=== PATIENT | male | born 1955 | race Caucasian/White ===

== ENCOUNTER → 2016-06-04 | Outpatient (CLI) | payer OTHER ==
[2016-06-04 19:36] LABS: ALT 31 U/L (21-72); AST 23 U/L (17-59); Alkaline Phosphatase 69 U/L (38-126); Anion Gap 12 mmol/L; Blood Urea Nitrogen 9 mg/dL (9-20); Calcium 9.7 mg/dL (8.4-10.2); Carbon Dioxide 28 mmol/L (22-30); Chloride 101 mmol/L (98-107); Cholesterol 138 mg/dL (<200); Glucose 102 mg/dL (74-99); HDL Cholesterol 29 mg/dL (40-60); Non-African American GFR(MDRD) >60 (>60 ml/min/1.73 sqM); Potassium 4.6 mmol/L (3.5-5.1); Sodium 141 mmol/L (137-145); Total Bilirubin 0.8 mg/dL (0.2-1.3); Total Protein 6.9 g/dL (6.3-8.2); Triglycerides 424 mg/dL (<150)
== END | disposition home or self-care (01) ==
LOC: MMGSC 10:27
PROVIDERS: ATTEND Family Medicine
DX: Z12.5 Encounter for screening for malignant neoplasm of prostate (principal); E78.5 Hyperlipidemia, unspecified; I10 Essential (primary) hypertension
CPT/HCPCS: 80061; 80053; 36415; G0103

== ENCOUNTER → 2017-07-07 | Outpatient (CLI) | payer OTHER ==
[2017-07-07 20:21] LABS: ALT 26 U/L (21-72); AST 25 U/L (17-59); Albumin 4.4 g/dL (3.5-5.0); Alkaline Phosphatase 69 U/L (38-126); Anion Gap 13 mmol/L; Blood Urea Nitrogen 15 mg/dL (9-20); Calcium 9.7 mg/dL (8.4-10.2); Carbon Dioxide 29 mmol/L (22-30); Chloride 102 mmol/L (98-107); Cholesterol 141 mg/dL (<200); Glucose 97 mg/dL (74-99); HDL Cholesterol 31 mg/dL (40-60); LDL Cholesterol,Calculated 36 mg/dL (0-99); Potassium 4.2 mmol/L (3.5-5.1); Sodium 144 mmol/L (137-145); Total Bilirubin 0.7 mg/dL (0.2-1.3); Triglycerides 370 mg/dL (<150)
[2017-07-07 20:44] LABS: Basophils % (A) 0 %; Eosinophils # (A) 0.4 k/uL (0-0.7); Eosinophils % (A) 3 %; HCT 47.8 % (39.0-53.0); HGB 15.8 gm/dL (13.0-17.5); Lymphocytes # (A) 3.1 k/uL (1.0-4.8); Lymphocytes % (A) 29 %; MCH 30.8 pg (25.0-35.0); MCHC 33.1 g/dL (31.0-37.0); MCV 93.1 fL (80.0-100.0); Mean Platelet Volume 7.6; Monocytes # (A) 0.7 k/uL (0-1.0); Monocytes % (A) 6 %; Neutrophils # (A) 6.6 k/uL (1.3-7.7); Neutrophils % (A) 60 %; Platelet Count 208 k/uL (150-450); RBC 5.13 m/uL (4.30-5.90); RDW 12.7 % (11.5-15.5)
[2017-07-07 20:45] LABS: PSA Annual Screen 1.48 ng/mL (0.00-4.00)
== END | disposition home or self-care (01) ==
LOC: MMGSC 09:25
PROVIDERS: ATTEND Family Medicine
DX: I10 Essential (primary) hypertension (principal); E78.5 Hyperlipidemia, unspecified; Z12.5 Encounter for screening for malignant neoplasm of prostate
CPT/HCPCS: 80061; 80053; 85025; 36415; G0103

== ENCOUNTER → 2023-09-17 | Outpatient (CLI) | payer MEDICARE, OTHER ==
--- NOTE | 2023-09-17 21:39 | US ---
EXAMINATION TYPE: US liver DATE OF EXAM: 09/17/2023 COMPARISON: NONE CLINICAL INDICATION: Male, 67 years old with history of R748 ABNORMAL LEVELS OF OTHER SERUM ENZYMES; Abnormal LFT's TECHNIQUE: Multiple sonographic images of the right upper quadrant are obtained. FINDINGS: EXAM MEASUREMENTS: Liver Length: 18.0 cm Gallbladder Wall: 0.4 cm CBD: 0.3 cm Right Kidney: 10.1 x 3.7 x 4.7 cm MINERAL ECONOMIST NOTES: Pancreas: Body wnl, head and tail obscured by overlying bowel gas Liver: Enlarged, heterogeneous with probable innumerable solid lesions scattered throughout liver jin ggesting malignancy Gallbladder: Thickened wall, lumen clear Evidence for sonographic Mobley's sign: Yes CBD: wnl Right Kidney: wnl Scant amount of ascites present Circumferential wall thickening of the gallbladder measuring 4 mm. No cholelithiasis is identified. N o significant distention. Reported positive sonographic Mobley sign. Common bile duct is within gilberto l limits. Right kidney is unremarkable without evidence of hydronephrosis or nephrolithiasis. No jl l solid mass identified. Enlarged heterogenous liver with suggested innumerable hyperechoic small sca ttered lesions. Surface nodularity identified. The visualized portions of the pancreas unremarkable. Small amount of perihepatic ascites identified. IMPRESSION: 1. Findings suspicious for hepatic cirrhosis with multiple suggested scattered lesions which may rep resent hepatocellular carcinoma and/or metastasis. Further evaluation with CT or MR abdomen liver mas s protocol is recommended. 2. Gallbladder wall thickening without cholelithiasis however reported positive sonographic Mobley s ign. This may be reactive to #1 versus less likely acute cholecystitis. Consider further evaluation n [facility] HIDA scan as clinically indicated. 3. Trace perihepatic ascites.
== END | disposition home or self-care (01) ==
LOC: RADUSWWP 07:29
PROVIDERS: ATTEND Family Medicine
DX: K82.8 Other specified diseases of gallbladder (principal); R74.8 Abnormal levels of other serum enzymes; R18.8 Other ascites
CPT/HCPCS: 76705

== ENCOUNTER 2023-10-06 16:41 | Inpatient (IN) | payer MEDICARE, OTHER ==
--- NOTE | 2023-10-06 17:00 | ED ---
General Adult HPI - General Stated complaint: fluid retention Time Seen by Provider: 10/06/23 16:45 - History of Present Illness Initial comments: Dictation was produced using [employer] dictation software. please excuse any grammatical, word or spelling errors. Chief Complaint: 67-year-old male presents with episode of dizziness and blurred vision History of Present Illness: Patient 67-year-old male recently he went to his primary care doctor for routine 6-month visit. States that he had some abnormal blood work and he was told to get a ultrasound that was performed 2 days ago. He was told that his ultrasound suspicious for liver cancer. Patient states today he started to feel some episodes of blurred vision and dizziness. States that he also has some acute on chronic abdominal pain. Patient also reports having difficulty urinating and having a bowel movement. Last bowel movement was liquidy and it was today. States that he has not urinated yet today. EMS reports that he has stable vitals. The ROS documented in this emergency department record has been reviewed and confirmed by me. Those systems with pertinent positive or negative responses have been documented in the HPI. All other systems are other negative and/or noncontributory. - Related Data Home Medications Medication Instructions Recorded Confirmed Aspirin EC [Ecotrin] 325 mg PO DAILY 10/06/23 10/06/23 Fish Oil(Unknown Dose) 1 cap PO DAILY 10/06/23 10/06/23 Meloxicam [Mobic] 15 mg PO DAILY PRN 10/06/23 10/06/23 Metoprolol Succinate (ER) [Toprol 100 mg PO DAILY 10/06/23 10/06/23 Xl] Rosuvastatin [Crestor] 10 mg PO HS 10/06/23 10/06/23 Vitamin C(Unknown Dose) 1 tab PO DAILY 10/06/23 10/06/23 Vitamin D3(Unknown Dose) 1 tab PO DAILY 10/06/23 10/06/23 Zolpidem [Ambien] 10 mg PO HS PRN 10/06/23 10/06/23 Allergies Allergy/AdvReac Type Severity Reaction Status Date / Time oxycodone AdvReac Confusion Verified 10/06/23 20:14 Review of Systems ROS Statement: Those systems with pertinent positive or pertinent negative responses have been documented in the HPI. ROS Other: All systems not noted in ROS Statement are negative. General Exam - General Exam Comments Initial Comments: PHYSICAL EXAM: General Impression: Alert and oriented x3, not in acute distress HEENT: Normocephalic atraumatic, extra-ocular movements intact, pupils equal and reactive to light bilaterally, mucous membranes moist. Cardiovascular: Heart regular rate and rhythm Chest: Able to complete full sentences, no retractions, no tachypnea Abdomen: abdomen soft, non-tender, non-distended, no organomegaly Musculoskeletal: Pulses present and equal in all extremities, no peripheral edema Motor: no focal deficits noted Neurological: CN II-XII grossly intact, no focal motor or sensory deficits noted Skin: Intact with no visualized rashes Psych: Normal affect and mood Course Vital Signs 10/06/23 10/06/23 10/06/23 16:53 17:42 17:43 Temperature 98.7 F Pulse Rate 98 Pulse Rate [ 87 94 Call Center Recruiter ] Respiratory 18 18 18 Rate Blood Pressure 132/91 Blood Pressure 136/96 [Right Arm Sitting] Blood Pressure 114/84 [Right Arm Standing] Blood Pressure 140/92 [Right Arm Supine] O2 Sat by Pulse 99 98 98 Oximetry 10/06/23 19:43 Temperature Pulse Rate 85 Pulse Rate [ Call Center Recruiter ] Respiratory 18 Rate Blood Pressure 148/85 Blood Pressure [Right Arm Sitting] Blood Pressure [Right Arm Standing] Blood Pressure [Right Arm Supine] O2 Sat by Pulse 100 Oximetry EKG Findings - EKG Comments: EKG Findings:: My EKG interpretation: Ventricular rate 83, sinus rhythm,. 187, cures 81, QTc 4 3. No NE prolongation, no QTC prolongation, no ST or T-wave changes noted. Overall, this EKG is unremarkable Medical Decision Making - Medical Decision Making Was pt. sent in by a medical professional or institution (, PA, PRESIDENT OF [place], urgent care, hospital, or [place] health care facility...) When possible be specific @ -No Did you speak to anyone other than the patient for history (EMS, parent, family, police, friend...)? What history was obtained from this source @ -No Did you review nursing and triage notes (agree or disagree)? Why? @ -I reviewed and agree with nursing and triage notes Were old charts reviewed (outside hosp., previous admission, EMS record, old EKG, old radiological studies, urgent care reports/EKG's, [place] health care facility records)? Report findings @ -No old charts were reviewed Differential Diagnosis (chest pain, altered mental status, abdominal pain women, abdominal pain men, vaginal bleeding, musculoskeletal, weakness, fever, dyspnea, syncope, headache, dizziness, GI bleed, back pain, seizure, CVA, palpatations, mental health)? @ -Differential Weakness: Hypoglycemia, shock, sepsis, hyponatremia, anemia, infection, MO, ETOH, adverse medicine reaction, overdose, stroke, this is not meant to be an all-inclusive list. EKG interpreted by me (3pts min.). @ -See above X-rays interpreted by me (1pt min.). @ -None done CT interpreted by me (1pt min.). @ -CT scan the brain shows no acute processes. CT abdomen pelvis shows multiple hypodense masses throughout the liver and also ascites. U/S interpreted by me (1pt. min.). @ -None done What testing was considered but not performed or refused? (CT, X-rays, U/S, labs)? Why? @ -None What meds were considered but not given or refused? Why? @ -None Was smoking cessation discussed for >3mins.? @ -No Were there social determinants of health that impacted care today? How? (Homelessness, low income, unemployed, alcoholism, drug addiction, transportation, low edu. Level, literacy, decrease access to med. care, group home, rehab)? @ -No Was there de-escalation of care discussed even if they declined (Discuss DNR or withdrawal of care, Hospice)? DNR status @ -No What co-morbidities impacted this encounter? (DM, HTN, Smoking, COPD, CAD, Cancer, CVA, ARF, Chemo, Hep., AIDS, mental health diagnosis, sleep apnea, morbid obesity)? @ -None Was patient admitted / discharged? Hospital course, mention meds given and route, prescriptions, significant lab abnormalities, going to OR and other pertinent info. @ -67-year-old male presents to the emergency department for chief complaint of dizziness, lester pain and urinary retention. Patient well-appearing at the bedside. He does have diffuse palpatory abdominal pain. Vital signs are stable. Laboratory evaluation obtained. CBC within acceptable limits. Sodium 120. Evaded liver enzymes. Urinalysis negative. Howard catheter was placed. Case discussed with [facility] for inpatient management of hyponatremia. They are made aware that patient has likely what appears to be new onset liver cancer. [facility] is agreeable for this admission. Did you discuss the management of the patient with other professionals (professionals i.e. , PA, [place]IDENT [place], lab, RT, psych nurse, socially responsible investment adviser, microsoft exchange architect, teacher, horticultural technical officer, comp field case manager)? Give summary @ -See above Was critical care preformed (if so, how long)? @ -No Undiagnosed new problem with uncertain prognosis? @ -No Drug Therapy requiring intensive monitoring for toxicity (Heparin, Nitro, Insulin, Cardizem)? @ -No Were any procedures done? @ -No Diagnosis/symptom? Acute, or Chronic, or Acute on Chronic? Uncomplicated (without systemic symptoms) or Complicated (systemic symptoms)? @ -Hyponatremia Side effects of treatment? @ -No Exacerbation, Progression, or Severe Exacerbation? @ -No Poses a threat to life or bodily function? How? (Chest pain, USA, MO, pneumonia, PE, COPD, DKA, ARF, appy, cholecystitis, CVA, Diverticulitis, Homicidal, Suicidal, threat to staff... and all critical care pts) @ -yes - Lab Data Result diagrams: 10/06/23 16:54 10/06/23 16:54 Lab Results 10/06/23 10/06/23 10/06/23 Range/Units 16:54 16:54 17:06 WBC 13.4 H (3.8-10.6) k/uL RBC 4.49 (4.30-5.90) m/uL Hgb 12.3 L (13.0-17.5) gm/dL Hct 38.2 L (39.0-53.0) % MCV 85.0 (80.0-100.0) fL MCH 27.3 (25.0-35.0) pg MCHC 32.1 (31.0-37.0) g/dL RDW 13.8 (11.5-15.5) % Plt Count 200 (150-450) k/uL MPV 7.2 Neutrophils % 89 % Lymphocytes % 4 % Monocytes % 5 % Eosinophils % 0 % Basophils % 0 % Neutrophils # 11.9 H (1.3-7.7) k/uL Lymphocytes # 0.6 L (1.0-4.8) k/uL Monocytes # 0.7 (0-1.0) k/uL Eosinophils # 0.0 (0-0.7) k/uL Basophils # 0.0 (0-0.2) k/uL Sodium 120 L (137-145) mmol/L Potassium 5.1 (3.5-5.1) mmol/L Chloride 88 L (98-107) mmol/L Carbon Dioxide 20 L (22-30) mmol/L Anion Gap 12 mmol/L BUN 20 (9-20) mg/dL Creatinine 0.80 (0.66-1.25) mg/dL Est GFR (CKD-EPI)AfAm >90 (>60 ml/min/1.73 sqM) Est GFR (CKD-EPI)NonAf >90 (>60 ml/min/1.73 sqM) Glucose 106 H (74-99) mg/dL Calcium 8.4 (8.4-10.2) mg/dL Magnesium 1.9 (1.6-2.3) mg/dL Total Bilirubin 3.4 H (0.2-1.3) mg/dL AST 101 H (17-59) U/L ALT 59 H (4-49) U/L Alkaline Phosphatase 1187 H (38-126) U/L Total Protein 5.3 L (6.3-8.2) g/dL Albumin 3.1 L (3.5-5.0) g/dL Urine Color Yellow Urine Appearance Clear (Clear) Urine pH 5.5 (5.0-8.0) Ur Specific Randolph 1.018 (1.001-1.035) Urine Protein Trace H (Negative) Urine Glucose (UA) Negative (Negative) Urine Ketones 1+ H (Negative) Urine Blood Negative (Negative) Urine Nitrite Negative (Negative) Urine Bilirubin 1+ H (Negative) Urine Urobilinogen 2.0 (<2.0) mg/dL Ur Leukocyte Esterase Negative (Negative) Disposition Clinical Impression: Hyponatremia Disposition: ADMITTED IP TO THIS HOSP Condition: Fair Referrals: Arlet Pacheco MD [Primary Care Provider] - 1-2 days Decision Time: 20:00
[2023-10-06 17:29] LABS: Basophils % (A) 0 %; Eosinophils % (A) 0 %; HCT 38.2 % (39.0-53.0); HGB 12.3 gm/dL (13.0-17.5); Lymphocytes # (A) 0.6 k/uL (1.0-4.8); Lymphocytes % (A) 4 %; MCH 27.3 pg (25.0-35.0); MCHC 32.1 g/dL (31.0-37.0); Mean Platelet Volume 7.2; Monocytes # (A) 0.7 k/uL (0-1.0); Monocytes % (A) 5 %; Neutrophils # (A) 11.9 k/uL (1.3-7.7); Neutrophils % (A) 89 %; Platelet Count 200 k/uL (150-450); RBC 4.49 m/uL (4.30-5.90); RDW 13.8 % (11.5-15.5); WBC 13.4 k/uL (3.8-10.6)
[2023-10-06 17:54] LABS: Appearance,Urine Clear (Clear); Bilirubin,Urine 1+ (Negative); Blood,Urine Negative (Negative); Color,Urine Yellow; Glucose,Urine (UA) Negative (Negative); Ketones,Urine 1+ (Negative); Leukocyte Esterase,Urine Negative (Negative); Nitrite,Urine Negative (Negative); PH, Urine 5.5 (5.0-8.0); Protein,Urine Trace (Negative); Specific Gravity,Urine 1.018 (1.001-1.035)
[2023-10-06 17:56] LABS: African American GFR (CKD) >90 (>60 ml/min/1.73 sqM); Albumin 3.1 g/dL (3.5-5.0); Blood Urea Nitrogen 20 mg/dL (9-20); Calcium 8.4 mg/dL (8.4-10.2); Glucose 106 mg/dL (74-99); Magnesium 1.9 mg/dL (1.6-2.3); Non-African American GFR(CKD) >90 (>60 ml/min/1.73 sqM); Potassium 5.1 mmol/L (3.5-5.1); Sodium 120 mmol/L (137-145); Total Bilirubin 3.4 mg/dL (0.2-1.3)
[2023-10-06 18:06] LABS: ALT 59 U/L (4-49); AST 101 U/L (17-59); Anion Gap 12 mmol/L; Carbon Dioxide 20 mmol/L (22-30); Chloride 88 mmol/L (98-107); Total Protein 5.3 g/dL (6.3-8.2)
[2023-10-06 18:18] LABS: Alkaline Phosphatase 1187 U/L (38-126)
--- NOTE | 2023-10-06 19:15 | CT ---
EXAMINATION TYPE: CT brain wo con DATE OF EXAM: 10/06/2023 COMPARISON: None INDICATION: dizziness DLP: 1107.4 mGycm, Automated exposure control for dose reduction was used. CONTRAST: None CT of the brain is performed utilizing 3 mm thick sections through the posterior fossa and 3 mm thick sections through the remaining calvarium. Study is performed within 24 hours of arrival to the hosp ital. No abnormal hyperdensity is present to suggest an acute intracranial hemorrhage. No mass lesion is evident. No acute infarcts are evident. Ventricles and sulci are appropriate for the patient age. There is a right maxillary sinus air-fluid level. Correlate for acute sinusitis. Paranasal sinuses an d mastoid air cells are otherwise clear. IMPRESSION: 1. No acute intracranial process. Follow-up MRI can be performed as clinically indicated. 2. Clinical consideration for acute right maxillary sinusitis is recommended.
--- NOTE | 2023-10-06 19:27 | CT ---
EXAMINATION TYPE: CT abdomen pelvis w con DATE OF EXAM: 10/06/2023 COMPARISON: Ultrasound 09/17/2023 INDICATION: abdominal pain, hx of liver ca DLP: 573.9 mGycm, Automated exposure control for dose reduction was used. CONTRAST: 100ml mL of Isovue 300. Study performed without Oral Contrast TECHNIQUE: Axial images were obtained from above the diaphragm to the pubic rami in the axial plane a t 5 mm thick sections. Reconstructed images are reviewed on the computer in the coronal plane. FINDINGS: Limited CT sections are obtained the lung bases. There is a 0.3 cm wide oval density at the base of the posterior lateral right lung. There is a 0.4 cm nodular density posterior left lung. There is a 0.5 cm nodule above the right diaphragm.. CT ABDOMEN: Ascites is present adjacent to the liver and spleen. Liver: There is extensive hypodensities with ill-defined margins throughout the liver suspicious for hepatic metastasis. Spleen: Normal Pancreas: Normal Adrenal glands: The adrenal glands are normal. Gallbladder: Normal Kidneys: No masses are evident. No hydronephrosis is present. No cysts are present. No renal stone s are identified. Aorta: Vascular calcification is within the aorta. Inferior vena cava: Normal. CT PELVIS: Ascites is through the pelvis. There may be some fluid within the right inguinal hernia. Loops of bowel within the abdomen and pelvis are normal. Scattered diverticuli within the sigmoid co ayla. This study is without oral contrast limiting bowel evaluation. Appendix: Not visualized. No dilated tubular structure or inflammatory change is evident. Urinary bladder: Decompressed with some limitation. Genitourinary structures: Prostate is somewhat prominent. Osseous structures: No suspicious lytic or sclerotic lesions. IMPRESSION: 1. Multiple hypodense masses scattered throughout the liver suspicious for metastatic disease. 2. Ascites.
[2023-10-06] MEDS: SODIUM CHLORIDE 0.9% 1,000 ML IV STA (19:45)
[2023-10-06] MEDS ORDERED: NALOXONE 0.4 MG/ML 1 ML VIAL IV PRN (20:46)
[2023-10-06] MEDS: SODIUM CHLORIDE 0.9% 1,000 ML IV SCH (20:57)
--- NOTE | 2023-10-06 23:29 | P.HPIM ---
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 He reports that he has been following up with his primary care doctor for routine wellness exams and visits when she found that he has elevated liver markers. For which she performed ultrasound as an outpatient and was found to have liver lesions for which she was urged to come to the hospital for evaluation Patient reports diffuse abdominal pain of 3 days duration he describes it as a vague achy pain all across his belly worse with eating and moving denies any associated nausea vomiting fevers chills chest pain shortness of breath. Patient reports weight loss of 7 pounds. He denies any IV drug abuse alcohol abuse or smoking He denies any falls or head injury denies any GI bleeding denies any history of blood clots He had a colonoscopy done about 8 years ago at that time he had 2 polyps he denies any history of cancer review of systems Pertinent positives as noted in HPI. All other systems were reviewed and are negative on exam Constitutional: No acute distress, conversant, pleasant Eyes: HiNT of sclerae jaundice, moist conjunctiva, Pupils equal round reactive to light ENMT: NC/AT Oropharynx clear, no erythema, or exudates Neck: Supple, no masses, or JVD No carotid bruits No thyromegaly Lungs: Clear to auscultation Clear to percussion Normal respiratory effort, no accessory muscle use Cardiovascular: Heart regular in rate and rhythm, No murmurs, gallops, or rubs No peripheral edema Abdominal: Soft Nontender, no guarding, rebound or rigidity Abdomen moving with respiration Normoactive bowel sounds Extremities: No digital cyanosis Pedal pulses intact and symmetrical Radial pulses intact and symmetrical No calf tenderness Psychiatric: Alert and oriented to person, place and time Appropriate affect fair judgement Neuro Muscles Strength 5/5 in all 4 extremities Sensation to light touch grossly present throughout Cranial nerves II-XII grossly intact Past Medical History Past Medical History: Cancer Additional Past Medical History / Comment(s): liver cancer 2023 History of Any Multi-Drug Resistant Organisms: None Reported Past Psychological History: No Psychological Hx Reported Smoking Status: Former smoker Past Alcohol Use History: None Reported Past Drug Use History: None Reported Medications and Allergies Home Medications Medication Instructions Recorded Confirmed Type Aspirin EC [Ecotrin] 325 mg PO DAILY 10/06/23 10/06/23 History Fish Oil(Unknown Dose) 1 cap PO DAILY 10/06/23 10/06/23 History Meloxicam [Mobic] 15 mg PO DAILY PRN 10/06/23 10/06/23 History Metoprolol Succinate (ER) [Toprol 100 mg PO DAILY 10/06/23 10/06/23 History Xl] Rosuvastatin [Crestor] 10 mg PO HS 10/06/23 10/06/23 History Vitamin C(Unknown Dose) 1 tab PO DAILY 10/06/23 10/06/23 History Vitamin D3(Unknown Dose) 1 tab PO DAILY 10/06/23 10/06/23 History Zolpidem [Ambien] 10 mg PO HS PRN 10/06/23 10/06/23 History Allergies Allergy/AdvReac Type Severity Reaction Status Date / Time oxycodone AdvReac Confusion Verified 10/06/23 20:14 Physical Exam Vitals: Vital Signs Temp Pulse Pulse Resp BP BP BP 10/06/23 19:43 85 18 148/85 10/06/23 17:43 94 18 136/96 114/84 10/06/23 17:42 87 18 10/06/23 16:53 98.7 F 98 18 132/91 BP Pulse Ox 10/06/23 19:43 100 10/06/23 17:43 98 10/06/23 17:42 140/92 98 10/06/23 16:53 99 Intake and Output 10/06/23 10/06/23 10/07/23 14:59 22:59 06:59 Other: Weight 58.967 kg Results CBC & Chem 7: 10/06/23 16:54 10/06/23 16:54 Labs: Abnormal Lab Results - Last 24 Hours (Table) 10/06/23 10/06/23 10/06/23 Range/Units 16:54 16:54 17:06 WBC 13.4 H (3.8-10.6) k/uL Hgb 12.3 L (13.0-17.5) gm/dL Hct 38.2 L (39.0-53.0) % Neutrophils # 11.9 H (1.3-7.7) k/uL Lymphocytes # 0.6 L (1.0-4.8) k/uL Sodium 120 L (137-145) mmol/L Chloride 88 L (98-107) mmol/L Carbon Dioxide 20 L (22-30) mmol/L Glucose 106 H (74-99) mg/dL Total Bilirubin 3.4 H (0.2-1.3) mg/dL AST 101 H (17-59) U/L ALT 59 H (4-49) U/L Alkaline Phosphatase 1187 H (38-126) U/L Total Protein 5.3 L (6.3-8.2) g/dL Albumin 3.1 L (3.5-5.0) g/dL Urine Protein Trace H (Negative) Urine Ketones 1+ H (Negative) Urine Bilirubin 1+ H (Negative) Assessment and Plan Assessment: 67-year-old male with premature CAD coming in for evaluation of abdominal pain and elevated liver enzymes he had an ultrasound done as an outpatient showed diffuse liver lesions I discussed case with ED doctor and accepted the admission for postural dizziness hyponatremia and liver lesions with anticipated length of stay more than 2 midnights Postural dizziness Hyponatremia, suspected to be secondary to liver disease Sodium level 120 Potassium 5.1 unremarkable BUN 20 creatinine 0.8 Status post 1 L normal saline in the ED Follow-up sodium level Nephrology consult Fall precautions Elevated liver enzymes CT scan of the abdomen pelvis showed multiple liver lesions unknown primary source suspicious of metastasis Bilirubin 3.4 AST 101 ALT 59 both elevated Alkaline phosphatase 1187 elevated GI consultation Oncology consultation History of CAD Continue with aspirin Hold statin secondary to elevated liver enzymes Continue with metoprolol Leukocytosis white count of 13.4 Afebrile No identifiable source of primary infection Mild anemia Hemoglobin 12.3 Patient denies any GI bleeding Continue to monitor DVT prophylaxis Lovenox 40 mg subcu daily Full code GI prophylaxis Protonix 40 mg p.o. daily
[2023-10-07] MEDS: MORPHINE SULFATE 4 MG/ML SYRINGE IVP PRN (04:14)
[2023-10-07] MEDS ORDERED: ENOXAPARIN 40 MG/0.4 ML SYRINGE SQ SCH (09:00)
[2023-10-07] MEDS ORDERED: ASPIRIN 81 MG PO SCH (09:00)
[2023-10-07] MEDS: METOPROLOL SUCCINATE (ER) 100 MG TAB.ER.24H PO SCH (09:05)
[2023-10-07] MEDS ORDERED: RX INFO: IV CONTRAST WAS GIVEN 1 EACH MISC MISCELLANE PRN (09:25)
--- NOTE | 2023-10-07 11:05 | P.CONS ---
History of Present Illness - Reason for Consult Consult date: 10/07/23 Liver lesions Requesting physician: Jung Mancia - Chief Complaint Abdominal pain - History of Present Illness This is a pleasant 67-year-old male who presented to the emergency department with complaints of abdominal pain and follow-up on abnormal outpatient ultrasoun d and labs. He was also reporting dizziness with movement. Patient denies any significant past medical history, former smoker. Denies any alcoholism states he drink socially when he was younger has not had a drink since his 40s. Patient states he had seen his PCP in June and had abnormal labs for his 6- month checkup. States that he had elevated liver enzymes, he had followed up with his PCP with complaints of abdominal pain, they recommended a liver ultrasound which she had done September 16 which reported suspicious for hepatic cirrhosis with multiple scattered lesions on the liver. Patient states he was called from his PCP and encouraged to come to the emergency department for further evaluation. He states he has had abdominal pain and bloating since the end of July. No previous known history of liver disease or cirrhosis. No history of hepatitis. States no weight loss, appetite has been good. He had elevated LFTs on admission, he had a CT of the abdomen and pelvis again report ing multiple liver lesions. Gastroenterology was consulted for the above. Patient reports last colonoscopy about 9 years ago. He currently denies any abdominal pain at this time states that he has been given morphine. No nausea or vomiting. He is tolerating a regular diet. Patient was also noted to be hyponatremic on admission. Review of Systems REVIEW OF SYSTEMS: CARDIOPULMONARY: No chest pain or shortness of breath. Gastrointestinal: Abdominal pain. No nausea or vomiting. No hematemesis, coffee-ground emesis. No rectal bleeding, or melena. GENITOURINARY: No dysuria or hematuria. MUSCULOSKELETAL: Reports normal range of motion. SKIN: No rashes. No jaundice. ENDOCRINE: No chills, fevers. No excessive weight gain or loss. No polydipsia or polyuria. PSYCHIATRIC: Unremarkable. NEUROLOGY: No change in mental status. Denies headache. Patient was having positional dizziness. ENT: Vision unremarkable. CONSTITUTIONAL: No recent weight loss. No fever, chills, night sweats. Past Medical History Past Medical History: Cancer Additional Past Medical History / Comment(s): liver cancer 2023 History of Any Multi-Drug Resistant Organisms: None Reported Past Psychological History: No Psychological Hx Reported Smoking Status: Former smoker Past Alcohol Use History: None Reported Past Drug Use History: None Reported Medications and Allergies Home Medications Medication Instructions Recorded Confirmed Type Aspirin EC [Ecotrin] 325 mg PO DAILY 10/06/23 10/06/23 History Fish Oil(Unknown Dose) 1 cap PO DAILY 10/06/23 10/06/23 History Meloxicam [Mobic] 15 mg PO DAILY PRN 10/06/23 10/06/23 History Metoprolol Succinate (ER) [Toprol 100 mg PO DAILY 10/06/23 10/06/23 History Xl] Rosuvastatin [Crestor] 10 mg PO HS 10/06/23 10/06/23 History Vitamin C(Unknown Dose) 1 tab PO DAILY 10/06/23 10/06/23 History Vitamin D3(Unknown Dose) 1 tab PO DAILY 10/06/23 10/06/23 History Zolpidem [Ambien] 10 mg PO HS PRN 10/06/23 10/06/23 History Allergies Allergy/AdvReac Type Severity Reaction Status Date / Time acetaminophen [From Tylenol] Allergy Rash/Hives Verified 10/06/23 23:50 oxycodone AdvReac Confusion Verified 10/06/23 20:14 Physical Exam Vitals: Vital Signs Temp Pulse Pulse Resp BP BP BP 10/07/23 08:00 98.7 F 80 18 133/85 10/07/23 06:00 78 17 107/70 10/07/23 04:00 87 18 147/85 10/07/23 03:26 82 18 136/102 10/06/23 23:00 86 18 121/77 10/06/23 19:43 85 18 148/85 10/06/23 17:43 94 18 136/96 114/84 10/06/23 17:42 87 18 10/06/23 16:53 98.7 F 98 18 132/91 BP Pulse Ox 10/07/23 08:00 95 10/07/23 06:00 94 L 10/07/23 04:00 10/07/23 03:26 10/06/23 23:00 10/06/23 19:43 100 10/06/23 17:43 98 10/06/23 17:42 140/92 98 10/06/23 16:53 99 Intake and Output 10/06/23 10/07/23 10/07/23 22:59 06:59 14:59 Output Total 850 Balance -850 Output: Urine 850 Uretheral (Howard) 850 Other: Weight 58.967 kg General appearance: The patient is alert, oriented, appears in no acute distress. HET: Head is normocephalic and atraumatic. Conjunctiva pink. Sclera anicteric. Neck: Supple without lymphadenopathy. Trachea midline. Heart: Regular. Lungs: Equal expansion, normal respiratory effort. Abdomen: Soft, mildly distended, nontender with palpation. Skin: No rashes. No jaundice. Extremities: Normal skin color and turgor. No pedal edema. Neurological: No focal deficits. Alert and oriented x3. Results CBC & Chem 7: 10/06/23 16:54 10/06/23 16:54 Labs: Abnormal Lab Results - Last 24 Hours (Table) 10/06/23 10/06/23 10/06/23 Range/Units 16:54 16:54 17:06 WBC 13.4 H (3.8-10.6) k/uL Hgb 12.3 L (13.0-17.5) gm/dL Hct 38.2 L (39.0-53.0) % Neutrophils # 11.9 H (1.3-7.7) k/uL Lymphocytes # 0.6 L (1.0-4.8) k/uL Sodium 120 L (137-145) mmol/L Chloride 88 L (98-107) mmol/L Carbon Dioxide 20 L (22-30) mmol/L Glucose 106 H (74-99) mg/dL Total Bilirubin 3.4 H (0.2-1.3) mg/dL AST 101 H (17-59) U/L ALT 59 H (4-49) U/L Alkaline Phosphatase 1187 H (38-126) U/L Total Protein 5.3 L (6.3-8.2) g/dL Albumin 3.1 L (3.5-5.0) g/dL Urine Protein Trace H (Negative) Urine Ketones 1+ H (Negative) Urine Bilirubin 1+ H (Negative) Comments: CT abdomen pelvis with contrast reports multiple hypodense masses scattered throughout the liver suspicious for metastatic disease. Ascites. Brain CT reports no acute intracranial process. Follow-up MRI can be performed as clinically indicated. Clinical consideration for acute right maxillary sinusitis is recommended. Assessment and Plan (1) Liver lesion Narrative/Plan: 67-year-old male presenting with abdominal pain since end of July with history of elevated LFTs following with his primary care physician undergoing outpatient liver ultrasound with liver lesions noted. No previous history of alcoholism, no history of hepatitis and no known history of liver disease. CT abdomen pelvis again showing multiple liver lesions and ascites. Concern for underlying liver carcinoma. Will obtain consult to interventional radiology for paracentesis with fluid studies. Await further recommendations from oncology. Obtain AFP, hepatitis panel. Current Visit: Yes Status: Acute Code(s): K76.9 - LIVER DISEASE, UNSPECIFIED SNOMED Code(s): 497632980 (2) Abdominal pain Current Visit: Yes Status: Acute Code(s): R10.9 - UNSPECIFIED ABDOMINAL PAIN SNOMED Code(s): 18268047 (3) Elevated LFTs Current Visit: Yes Status: Acute Code(s): R79.89 - OTHER SPECIFIED ABNORMAL FINDINGS OF BLOOD CHEMISTRY SNOMED Code(s): 122195108 (4) Hyponatremia Narrative/Plan: Nephrology following Current Visit: Yes Status: Acute Code(s): E87.1 - HYPO-OSMOLALITY AND HYPONATREMIA SNOMED Code(s): 56751878 Plan: 1. Continue symptomatic and supportive care 2. Diet as tolerated 3. AFP, hepatitis panel ordered 4. Consult to interventional radiology for paracentesis with fluid studies and cytology 5. Pain medication as needed 6. Await further recommendations from oncology 7. Further recommendations forthcoming based on clinical course Thank you for this consultation, we will continue to follow. Dr. Tone Monroy I agree with the dictator's note, documented as a scribe by Nyasia Merino.
--- NOTE | 2023-10-07 11:44 | P.PN ---
Subjective Progress Note Date: 10/07/23 Patient has no new complaints. 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 coming in for evaluation of abdominal pain and elevated liver enzymes he had an ultrasound done as an outpatient showed diffuse liver lesions I discussed case with ED doctor and accepted the admission for postural dizziness hyponatremia and liver lesions with anticipated length of stay more than 2 midnights -Status post 1 L normal saline in the ED Sodium level 120 CT scan of the abdomen pelvis showed multiple liver lesions unknown primary source suspicious of metastasis Bilirubin 3.4 AST 101 ALT 59 both elevated Alkaline phosphatase 1187 elevated white count of 13.4 Afebrile Hemoglobin 12.3 Potassium 5.1 unremarkable BUN 20 creatinine 0.8 Assessment/plan: Postural dizziness Hyponatremia, euvolemic -Nephrology consult -Fall precautions -Basic metabolic panel: Every 6 hours, serum osmolality/sodium, urine osmolality is pending Liver lesions Elevated liver enzymes -GI consultation -Oncology consultation History of CAD -Continue with aspirin -Hold statin secondary to elevated liver enzymes -Continue with metoprolol Leukocytosis -No identifiable source of primary infection Mild anemia -Patient denies any GI bleeding -Continue to monitor -Oncology is following DVT prophylaxis Lovenox 40 mg subcu daily Full code GI prophylaxis Protonix 40 mg p.o. daily Objective - Vital Signs Vital signs: Vital Signs Temp 98.7 F 10/07/23 08:00 Pulse 80 10/07/23 08:00 Resp 18 10/07/23 08:00 BP 133/85 10/07/23 08:00 Pulse Ox 95 10/07/23 08:00 FiO2 Intake & Output 10/06/23 10/07/23 10/07/23 18:59 06:59 18:59 Output Total 850 Balance -850 Weight 58.967 kg Output: Urine 850 Uretheral (Howard) 850 - Labs CBC & Chem 7: 10/06/23 16:54 10/06/23 16:54 Labs: Abnormal Lab Results - Last 24 Hours (Table) 10/06/23 10/06/23 10/06/23 Range/Units 16:54 16:54 17:06 WBC 13.4 H (3.8-10.6) k/uL Hgb 12.3 L (13.0-17.5) gm/dL Hct 38.2 L (39.0-53.0) % Neutrophils # 11.9 H (1.3-7.7) k/uL Lymphocytes # 0.6 L (1.0-4.8) k/uL Sodium 120 L (137-145) mmol/L Chloride 88 L (98-107) mmol/L Carbon Dioxide 20 L (22-30) mmol/L Glucose 106 H (74-99) mg/dL Total Bilirubin 3.4 H (0.2-1.3) mg/dL AST 101 H (17-59) U/L ALT 59 H (4-49) U/L Alkaline Phosphatase 1187 H (38-126) U/L Total Protein 5.3 L (6.3-8.2) g/dL Albumin 3.1 L (3.5-5.0) g/dL Urine Protein Trace H (Negative) Urine Ketones 1+ H (Negative) Urine Bilirubin 1+ H (Negative)
[2023-10-07 11:57] LABS: African American GFR (CKD) >90 (>60 ml/min/1.73 sqM); Non-African American GFR(CKD) >90 (>60 ml/min/1.73 sqM); Sodium 123 mmol/L (137-145)
[2023-10-07 12:04] LABS: INR 1.3 (<1.2); Prothrombin Time 13.4 sec (10.0-12.5)
[2023-10-07 12:36] LABS: BUN/Creat Ratio 18.25 Ratio (12.00-20.00); Blood Urea Nitrogen 14.6 mg/dL (9.0-27.0); Calcium 7.9 mg/dL (8.7-10.3); Carbon Dioxide 23.3 mmol/L (21.6-31.8); Chloride 91 mmol/L (96-109); Glucose 83 mg/dL (70-110); Potassium 4.8 mmol/L (3.5-5.5); Sodium 125 mmol/L (135-145)
--- NOTE | 2023-10-07 12:49 | P.NPCON ---
History of Present Illness - Reason for Consult hyponatremia - History of Present Illness Patient is a 67-year-old male with history of coronary artery disease and recently diagnosed liver cancer who is admitted to the hospital with decreased oral intake, increased weakness along with abdominal pain which has been going on for 2-3 days prior to admission. Patient admits to decreased oral intake recently. He has had significant weight loss. No previous history of hyponatremia. sodium was 120 on admission. Blood pressure has not been low. patient received IV fluid bolus in the ER. Sodium has improved to 123 today. Review of Systems as per HPI Past Medical History Past Medical History: Cancer Additional Past Medical History / Comment(s): liver cancer 2023 History of Any Multi-Drug Resistant Organisms: None Reported Past Psychological History: No Psychological Hx Reported Smoking Status: Former smoker Past Alcohol Use History: None Reported Past Drug Use History: None Reported Medications and Allergies Home Medications Medication Instructions Recorded Confirmed Type Aspirin EC [Ecotrin] 325 mg PO DAILY 10/06/23 10/06/23 History Fish Oil(Unknown Dose) 1 cap PO DAILY 10/06/23 10/06/23 History Meloxicam [Mobic] 15 mg PO DAILY PRN 10/06/23 10/06/23 History Metoprolol Succinate (ER) [Toprol 100 mg PO DAILY 10/06/23 10/06/23 History Xl] Rosuvastatin [Crestor] 10 mg PO HS 10/06/23 10/06/23 History Vitamin C(Unknown Dose) 1 tab PO DAILY 10/06/23 10/06/23 History Vitamin D3(Unknown Dose) 1 tab PO DAILY 10/06/23 10/06/23 History Zolpidem [Ambien] 10 mg PO HS PRN 10/06/23 10/06/23 History Allergies Allergy/AdvReac Type Severity Reaction Status Date / Time acetaminophen [From Tylenol] Allergy Rash/Hives Verified 10/06/23 23:50 oxycodone AdvReac Confusion Verified 10/06/23 20:14 Physical Exam Vitals: Vital Signs Temp Pulse Pulse Resp BP BP BP 10/07/23 08:00 98.7 F 80 18 133/85 10/07/23 06:00 78 17 107/70 10/07/23 04:00 87 18 147/85 10/07/23 03:26 82 18 136/102 10/06/23 23:00 86 18 121/77 10/06/23 19:43 85 18 148/85 10/06/23 17:43 94 18 136/96 114/84 10/06/23 17:42 87 18 10/06/23 16:53 98.7 F 98 18 132/91 BP Pulse Ox 10/07/23 08:00 95 10/07/23 06:00 94 L 10/07/23 04:00 10/07/23 03:26 10/06/23 23:00 10/06/23 19:43 100 10/06/23 17:43 98 10/06/23 17:42 140/92 98 10/06/23 16:53 99 Intake and Output 10/06/23 10/07/23 10/07/23 22:59 06:59 14:59 Output Total 850 Balance -850 Output: Urine 850 Uretheral (Howard) 850 Other: Weight 58.967 kg patient is awake, comfortable, no acute distress. Examination of the heart S1 and S2 Examination of the lungs bilateral breath sounds are heard Abdomen is soft nontender, distended Examination of lower extremity shows no significant edema [employer] exam grossly intact Results - Lab Results Most recent lab results Calcium 8.4 mg/dL (8.4-10.2) 10/06/23 16:54 Magnesium 1.9 mg/dL (1.6-2.3) 10/06/23 16:54 10/06/23 16:54 10/07/23 11:30 Assessment and Plan Assessment: 1. Hyponatremia, hypovolemic and improved with normal saline. I will resume normal saline and check urine osmolality and urine sodium. 2. Recent diagnosis of liver cancer 3. Abdominal pain Plan: resume normal saline. Check urine osmolality and check random urine sodium Repeat sodium later this evening Patient is encouraged to increase oral intake. thank you for the consultation. We will continue to follow the patient with you during his hospitalization.
[2023-10-07] MEDS: SODIUM CHLORIDE 0.9% 1,000 ML IV SCH (13:45)
[2023-10-07 15:00] LABS: African American GFR (CKD) >90 (>60 ml/min/1.73 sqM); Anion Gap 4 mmol/L; Blood Urea Nitrogen 16 mg/dL (9-20); Calcium 7.7 mg/dL (8.4-10.2); Carbon Dioxide 26 mmol/L (22-30); Chloride 92 mmol/L (98-107); Glucose 97 mg/dL (74-99); Non-African American GFR(CKD) >90 (>60 ml/min/1.73 sqM); Potassium 4.5 mmol/L (3.5-5.1); Sodium 122 mmol/L (137-145)
--- NOTE | 2023-10-07 16:31 | P.CONS ---
History of Present Illness - Reason for Consult Consult date: 10/07/23 liver lesions, ascites Requesting physician: Jung Mancia - Chief Complaint abd pain and distension - History of Present Illness Mr. Larkin is a 67-year-old male who is due to be seen in our office in the next week as a referral by PCP Dr. Ascencio for liver mass. Patient had labs with slightly elevated AST of 37 and ALT of 42 and alk phos of 200 on 07/24/23. He finally agreed to an ultrasound of the liver because of those abnormal LFTs on 09/17/2023, report reads: pancreas within normal limits, head and tail obscured by overlying bowel gas, liver was enlarged 18cm, heterogeneous with probable innumerable solid lesions scattered throughout the liver, suggesting malignancy, scant amount of ascites present. Gallbladder thickening also noted without cho lelithiasis, positive Mobley sign. Patient reports over the last few days has been experiencing increasing abdominal pain with distention, change in bowel habits to diarrhea. Has no brandee etite, not sure how much weight he has lost at this time. He states every bone in his body hurts but, that has been going on since 2000. He denies any fevers, nausea, vomiting, no history of hepatitis, liver disease. ETOH when younger, not recent. He has 2 sisters who are from malignancy-1 from pancreatic carcinoma and 1 from throat/sinus malignancy. Review of Systems 10 point ROS is neg except as stated in HPI Past Medical History Past Medical History: Cancer Additional Past Medical History / Comment(s): liver cancer 2023 History of Any Multi-Drug Resistant Organisms: None Reported Past Psychological History: No Psychological Hx Reported Smoking Status: Former smoker Past Alcohol Use History: None Reported Past Drug Use History: None Reported Medications and Allergies Home Medications Medication Instructions Recorded Confirmed Type Aspirin EC [Ecotrin] 325 mg PO DAILY 10/06/23 10/06/23 History Fish Oil(Unknown Dose) 1 cap PO DAILY 10/06/23 10/06/23 History Meloxicam [Mobic] 15 mg PO DAILY PRN 10/06/23 10/06/23 History Metoprolol Succinate (ER) [Toprol 100 mg PO DAILY 10/06/23 10/06/23 History Xl] Rosuvastatin [Crestor] 10 mg PO HS 10/06/23 10/06/23 History Vitamin C(Unknown Dose) 1 tab PO DAILY 10/06/23 10/06/23 History Vitamin D3(Unknown Dose) 1 tab PO DAILY 10/06/23 10/06/23 History Zolpidem [Ambien] 10 mg PO HS PRN 10/06/23 10/06/23 History Allergies Allergy/AdvReac Type Severity Reaction Status Date / Time acetaminophen [From Tylenol] Allergy Rash/Hives Verified 10/06/23 23:50 oxycodone AdvReac Confusion Verified 10/06/23 20:14 Physical Exam Vitals: Vital Signs Temp Pulse Pulse Resp BP BP BP 10/07/23 08:00 98.7 F 80 18 133/85 10/07/23 06:00 78 17 107/70 10/07/23 04:00 87 18 147/85 10/07/23 03:26 82 18 136/102 10/06/23 23:00 86 18 121/77 10/06/23 19:43 85 18 148/85 10/06/23 17:43 94 18 136/96 114/84 10/06/23 17:42 87 18 10/06/23 16:53 98.7 F 98 18 132/91 BP Pulse Ox 10/07/23 08:00 95 10/07/23 06:00 94 L 10/07/23 04:00 10/07/23 03:26 10/06/23 23:00 10/06/23 19:43 100 10/06/23 17:43 98 10/06/23 17:42 140/92 98 10/06/23 16:53 99 Intake and Output 10/07/23 10/07/23 10/07/23 06:59 14:59 22:59 Output Total 850 Balance -850 Output: Urine 850 Uretheral (Howard) 850 - Constitutional General appearance: cooperative, no acute distress, thin - EENT Eyes: anicteric sclerae, EOMI ENT: hearing grossly normal - Neck Neck: no lymphadenopathy - Respiratory Respiratory: bilateral: CTA - Cardiovascular Rhythm: regular Heart sounds: normal: S1, S2 Abnormal Heart Sounds: no systolic murmur, no diastolic murmur, no rub, no S3 Gallop, no S4 Gallop, no click, no other leg Peripheral Edema: bilateral: None - Gastrointestinal General gastrointestinal: distended, normal bowel sounds, soft, tenderness - Neurologic Neurologic: CNII-XII intact - Musculoskeletal Musculoskeletal: strength equal bilaterally - Psychiatric Psychiatric: A&O x's 3, appropriate affect, intact judgment & insight Results CBC & Chem 7: 10/06/23 16:54 10/07/23 14:16 Labs: Abnormal Lab Results - Last 24 Hours (Table) 10/06/23 10/06/23 10/06/23 Range/Units 16:54 16:54 17:06 WBC 13.4 H (3.8-10.6) k/uL Hgb 12.3 L (13.0-17.5) gm/dL Hct 38.2 L (39.0-53.0) % Neutrophils # 11.9 H (1.3-7.7) k/uL Lymphocytes # 0.6 L (1.0-4.8) k/uL PT (10.0-12.5) sec INR (<1.2) Sodium 120 L (137-145) mmol/L Chloride 88 L (98-107) mmol/L Carbon Dioxide 20 L (22-30) mmol/L Creatinine (0.66-1.25) mg/dL Glucose 106 H (74-99) mg/dL Osmolality (275-295) mOsm/kg Calcium (8.7-10.3) mg/dL Total Bilirubin 3.4 H (0.2-1.3) mg/dL AST 101 H (17-59) U/L ALT 59 H (4-49) U/L Alkaline Phosphatase 1187 H (38-126) U/L Total Protein 5.3 L (6.3-8.2) g/dL Albumin 3.1 L (3.5-5.0) g/dL Urine Protein Trace H (Negative) Urine Ketones 1+ H (Negative) Urine Bilirubin 1+ H (Negative) 10/07/23 10/07/23 10/07/23 Range/Units 08:20 11:30 11:30 WBC (3.8-10.6) k/uL Hgb (13.0-17.5) gm/dL Hct (39.0-53.0) % Neutrophils # (1.3-7.7) k/uL Lymphocytes # (1.0-4.8) k/uL PT 13.4 H (10.0-12.5) sec INR 1.3 H (<1.2) Sodium 125 L 123 L (137-145) mmol/L Chloride 91 L (98-107) mmol/L Carbon Dioxide (22-30) mmol/L Creatinine 0.65 L (0.66-1.25) mg/dL Glucose (74-99) mg/dL Osmolality 262 L (275-295) mOsm/kg Calcium 7.9 L (8.7-10.3) mg/dL Total Bilirubin (0.2-1.3) mg/dL AST (17-59) U/L ALT (4-49) U/L Alkaline Phosphatase (38-126) U/L Total Protein (6.3-8.2) g/dL Albumin (3.5-5.0) g/dL Urine Protein (Negative) Urine Ketones (Negative) Urine Bilirubin (Negative) 10/07/23 Range/Units 14:16 WBC (3.8-10.6) k/uL Hgb (13.0-17.5) gm/dL Hct (39.0-53.0) % Neutrophils # (1.3-7.7) k/uL Lymphocytes # (1.0-4.8) k/uL PT (10.0-12.5) sec INR (<1.2) Sodium 122 L (137-145) mmol/L Chloride 92 L (98-107) mmol/L Carbon Dioxide (22-30) mmol/L Creatinine 0.61 L (0.66-1.25) mg/dL Glucose (74-99) mg/dL Osmolality (275-295) mOsm/kg Calcium 7.7 L (8.7-10.3) mg/dL Total Bilirubin (0.2-1.3) mg/dL AST (17-59) U/L ALT (4-49) U/L Alkaline Phosphatase (38-126) U/L Total Protein (6.3-8.2) g/dL Albumin (3.5-5.0) g/dL Urine Protein (Negative) Urine Ketones (Negative) Urine Bilirubin (Negative) CT scan - abdomen: report reviewed CT Scan - head: report reviewed CT scan - pelvis: report reviewed Assessment and Plan (1) Abdominal pain Current Visit: Yes Status: Acute Priority: High Code(s): R10.9 - UNSPECIFIED ABDOMINAL PAIN SNOMED Code(s): 23183940 (2) Elevated LFTs Current Visit: Yes Status: Acute Priority: High Code(s): R79.89 - OTHER SPECIFIED ABNORMAL FINDINGS OF BLOOD CHEMISTRY SNOMED Code(s): 670302119 (3) Hyponatremia Current Visit: Yes Status: Acute Priority: High Code(s): E87.1 - HYPO- OSMOLALITY AND HYPONATREMIA SNOMED Code(s): 61690437 (4) Liver lesion Current Visit: Yes Status: Acute Priority: High Code(s): K76.9 - LIVER DISEASE, UNSPECIFIED SNOMED Code(s): 018152230 Plan: Liver lesions, ascites -Reviewed with the patient the concerning findings on CT of the abdomen and pelvis. -Recommendation is for liver biopsy versus a diagnostic paracentesis. Patient agrees with procedure to obtain a diagnosis. -Interventional radiology has been consulted for the above -Patient states that he lives alone, cannot take care of himself so, he is not sure what he is going to do with the information he receives from doing this biopsy. It was explained to patient that if the biopsy is positive for malignancy, Medical Oncologist can review with him the diagnosis, prognosis with and without treatment as well as options for care including active cancer treatment versus treatment of symptoms. Can also review best setting for pt considering he lives alone and does not have any family. Patient stated that he would like to discuss all these things. -CT of the chest has been ordered -Continue pain medications and adjust as needed for adequate pain control attests: I have performed H&P and developed impression and plan of care for p atient, discussed with dictator. I agree with dictated note, documented as a scribe
[2023-10-07 16:53] LABS: Mean Platelet Volume 9.5; Platelet Count 178 k/uL (150-450)
--- NOTE | 2023-10-07 19:31 | CT ---
EXAMINATION TYPE: CT chest w con DATE OF EXAM: 10/07/2023 COMPARISON: CT abdomen and pelvis 10/18/2023 HISTORY: liver lesions CT DLP: 139.0 mGycm, Automated exposure control for dose reduction was used. CONTRAST: Performed injected with 100ml mL of Isovue 300. TECHNIQUE: Axial images were obtained at 5 mm thick sections. Reconstructed images are reviewed on [employer] computer in the coronal plane. FINDINGS: Portion of the thyroid visualized is normal. Multiple small nodules are within the upper lung field. There is a 0.5 cm nodule in the posterior rig ht upper lung field, series 4 image 19. There are a few scattered small lymph nodes within mid and lo wer dependent portions of the lung mistry. A 0.8 cm nodule is within the mid left lung, series 4 clint ge 33. Small nodules continue to the lung base. There is a small left pleural effusion. Minimal right pleural effusion is present. No enlarged mediastinal or hilar adenopathy is evident. The ascending aorta diameter at the level o f the main pulmonary artery is 3.2 cm. The main pulmonary artery diameter at the bifurcation is 2.3 cm. There is likely some coronary artery calcification present. Limited CT sections are obtained through the upper abdomen. Multiple suspicious nodules are scattered within the visualized liver. Heterogeneity of the anterior right portion of the spleen. Metastatic d isease should be considered. IMPRESSION: 1. Multiple punctate densities which could pole of moderate subcentimeter nodules present. Metastatic disease should be considered. Consider PET CT for additional evaluation. 2. Probable hepatic possible splenic metastasis.
[2023-10-07 20:50] LABS: African American GFR (CKD) >90 (>60 ml/min/1.73 sqM); Anion Gap 5 mmol/L; Blood Urea Nitrogen 17 mg/dL (9-20); Calcium 7.8 mg/dL (8.4-10.2); Carbon Dioxide 25 mmol/L (22-30); Chloride 92 mmol/L (98-107); Glucose 96 mg/dL (74-99); Non-African American GFR(CKD) >90 (>60 ml/min/1.73 sqM); Potassium 4.5 mmol/L (3.5-5.1); Sodium 122 mmol/L (137-145)
[2023-10-07 22:34] LABS: Alpha Fetoprotein, Tumor Mkr <3.00 ng/mL (0.00-7.90); Carcinoembryonic Antigen 8.8 ng/mL (0.0-4.9)
[2023-10-07 22:58] LABS: Hepatitis A Antibody IgM Nonreactive (Nonreactive); Hepatitis B Core IgM Nonreactive (Nonreactive); Hepatitis B Surface Antigen Nonreactive (Nonreactive); Hepatitis C IgG Antibody Nonreactive (Nonreactive)
[2023-10-08 04:04] LABS: ALT 58 U/L (4-49); AST 103 U/L (17-59); African American GFR (CKD) >90 (>60 ml/min/1.73 sqM); Albumin 2.3 g/dL (3.5-5.0); Albumin/Globulin Ratio 1.2; Alkaline Phosphatase 1139 U/L (38-126); Anion Gap 4 mmol/L; Blood Urea Nitrogen 16 mg/dL (9-20); Calcium 7.6 mg/dL (8.4-10.2); Carbon Dioxide 22 mmol/L (22-30); Chloride 96 mmol/L (98-107); Glucose 79 mg/dL (74-99); Non-African American GFR(CKD) >90 (>60 ml/min/1.73 sqM); Potassium 4.4 mmol/L (3.5-5.1); Sodium 122 mmol/L (137-145); Total Bilirubin 3.1 mg/dL (0.2-1.3); Total Protein 4.3 g/dL (6.3-8.2)
[2023-10-08 04:58] LABS: Basophils % (A) 0 %; Eosinophils # (A) 0.1 k/uL (0-0.7); Eosinophils % (A) 0 %; HGB 11.5 gm/dL (13.0-17.5); Lymphocytes # (A) 1.1 k/uL (1.0-4.8); Lymphocytes % (A) 8 %; MCH 27.5 pg (25.0-35.0); MCHC 31.9 g/dL (31.0-37.0); MCV 86.2 fL (80.0-100.0); Mean Platelet Volume 7.6; Monocytes # (A) 1.1 k/uL (0-1.0); Monocytes % (A) 8 %; Neutrophils # (A) 11.5 k/uL (1.3-7.7); Neutrophils % (A) 83 %; Platelet Count 198 k/uL (150-450); RBC 4.18 m/uL (4.30-5.90); WBC 13.9 k/uL (3.8-10.6)
--- NOTE | 2023-10-08 08:47 | P.PN ---
Subjective Progress Note Date: 10/08/23 Patient is complaining of abdominal pain today. Denies n/v/c/d. 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 coming in for evaluation of abdominal pain and elevated liver enzymes he had an ultrasound done as an outpatient showed diffuse liver lesions I discussed case with ED doctor and accepted the admission for postural dizziness hyponatremia and liver lesions with anticipated length of stay more than 2 midnights -Status post 1 L normal saline in the ED Sodium level 120 CT scan of the abdomen pelvis showed multiple liver lesions unknown primary source suspicious of metastasis Bilirubin 3.4 AST 101 ALT 59 both elevated Alkaline phosphatase 1187 elevated white count of 13.4 Afebrile Hemoglobin 12.3 Potassium 5.1 unremarkable BUN 20 creatinine 0.8 Assessment/plan: Postural dizziness Hyponatremia, hypovolemic -Nephrology consult -Fall precautions -Basic metabolic panel: Every 6 hours, serum osmolality/sodium, urine osmolality is c/w hypovolemic hyponatremia Liver lesions Elevated liver enzymes -GI consultation -Oncology consultation -norco PRN, morphine PRN History of CAD -Continue with aspirin -Hold statin secondary to elevated liver enzymes -Continue with metoprolol Leukocytosis -No identifiable source of primary infection Mild anemia -Patient denies any GI bleeding -Continue to monitor -Oncology is following DVT prophylaxis Lovenox 40 mg subcu daily Full code GI prophylaxis Protonix 40 mg p.o. daily Objective - Vital Signs Vital signs: Vital Signs Temp 98.3 F 10/08/23 07:33 Pulse 74 10/08/23 07:33 Resp 16 10/08/23 07:33 BP 124/69 10/08/23 07:33 Pulse Ox 97 10/08/23 07:33 FiO2 Intake & Output 10/07/23 10/08/23 10/08/23 18:59 06:59 18:59 Output Total 320 Balance -320 Weight 58.3 kg 54.5 kg Output: Urine 320 Other: Voiding Method Indwelling Catheter - Labs CBC & Chem 7: 10/08/23 02:37 10/08/23 02:37 Labs: Abnormal Lab Results - Last 24 Hours (Table) 10/07/23 10/07/23 10/07/23 Range/Units 08:20 11:30 11:30 WBC (3.8-10.6) k/uL RBC (4.30-5.90) m/uL Hgb (13.0-17.5) gm/dL Hct (39.0-53.0) % Neutrophils # (1.3-7.7) k/uL Monocytes # (0-1.0) k/uL PT (10.0-12.5) sec INR (<1.2) Sodium 125 L 123 L (135-145) mmol/L Chloride 91 L (96-109) mmol/L Creatinine 0.65 L (0.66-1.25) mg/dL Osmolality 262 L (275-295) mOsm/kg Calcium 7.9 L (8.7-10.3) mg/dL Total Bilirubin (0.2-1.3) mg/dL AST (17-59) U/L ALT (4-49) U/L Alkaline Phosphatase (38-126) U/L Total Protein (6.3-8.2) g/dL Albumin (3.5-5.0) g/dL Carcinoembryonic Ag 8.8 H (0.0-4.9) ng/mL CA 19-9 Antigen 364.0 H (0.0-34.9) U/mL Ur Random Sodium (40-220) mmol/L 10/07/23 10/07/23 10/07/23 Range/Units 11:30 14:16 19:39 WBC (3.8-10.6) k/uL RBC (4.30-5.90) m/uL Hgb (13.0-17.5) gm/dL Hct (39.0-53.0) % Neutrophils # (1.3-7.7) k/uL Monocytes # (0-1.0) k/uL PT 13.4 H (10.0-12.5) sec INR 1.3 H (<1.2) Sodium 122 L (135-145) mmol/L Chloride 92 L (96-109) mmol/L Creatinine 0.61 L (0.66-1.25) mg/dL Osmolality (275-295) mOsm/kg Calcium 7.7 L (8.7-10.3) mg/dL Total Bilirubin (0.2-1.3) mg/dL AST (17-59) U/L ALT (4-49) U/L Alkaline Phosphatase (38-126) U/L Total Protein (6.3-8.2) g/dL Albumin (3.5-5.0) g/dL Carcinoembryonic Ag (0.0-4.9) ng/mL CA 19-9 Antigen (0.0-34.9) U/mL Ur Random Sodium <20 L (40-220) mmol/L 10/07/23 10/08/23 10/08/23 Range/Units 20:28 02:37 02:37 WBC 13.9 H (3.8-10.6) k/uL RBC 4.18 L (4.30-5.90) m/uL Hgb 11.5 L (13.0-17.5) gm/dL Hct 36.0 L (39.0-53.0) % Neutrophils # 11.5 H (1.3-7.7) k/uL Monocytes # 1.1 H (0-1.0) k/uL PT (10.0-12.5) sec INR (<1.2) Sodium 122 L 122 L (135-145) mmol/L Chloride 92 L 96 L (96-109) mmol/L Creatinine (0.66-1.25) mg/dL Osmolality (275-295) mOsm/kg Calcium 7.8 L 7.6 L (8.7-10.3) mg/dL Total Bilirubin 3.1 H (0.2-1.3) mg/dL AST 103 H (17-59) U/L ALT 58 H (4-49) U/L Alkaline Phosphatase 1139 H (38-126) U/L Total Protein 4.3 L (6.3-8.2) g/dL Albumin 2.3 L (3.5-5.0) g/dL Carcinoembryonic Ag (0.0-4.9) ng/mL CA 19-9 Antigen (0.0-34.9) U/mL Ur Random Sodium (40-220) mmol/L
--- NOTE | 2023-10-08 12:02 | CDI ---
Documentation Clarification Form Date: 10/08/2023 12:02:00 PM From: Lana Gama Phone: [phone] Admit Date: 10/06/2023 08:48:00 PM Patient Name: Adryan Larkin Visit Number: [id number] Discharge Date: ATTENTION: The Clinical Documentation Specialists (CDI) and [facility] Coding Staff appreciate your assistance in clarifying documentation. Please respond to the clarification below the line at the bottom and electronically sign. The CDI & [facility] Coding staff will review the response and follow-up if needed. Please note: Queries are made part of the Legal Health Record. If you have any questions, please contact the author of this message via ITS. Dr. Ryan Bolaños: Patient has a documented BMI of 18.8 on 10/05. Additional clarification is requested. History/Risk Factors: 67-year-old male with a history of CAD who presents for evaluation of abdominal pain and elevated liver enzymes Clinical Indicators: 10/05 H&P, HPI: "Patient reports diffuse abdominal pain of 3 days duration he describes it as a vague achy pain all across his belly worse with eating and moving denies any associated nausea vomiting fevers chills chest pain shortness of breath. Patient reports weight loss of 7 pounds." 10/07 IM PN, Subjective, General: "In NAD, non-toxic, cachectic" 10/07 RD Assessment, Nutrition Diagnosis: Malnutrition, chronic moderate, related to physiological condition causing increased energy needs as evidenced by wasting to temporal/clavicular region, fat loss to triceps region" 10/05 Patients weight is 54.5 Patients height is 5ft 7in Calculated BMI is 18.8 Treatments: Healthy Heart diet Ensure Enlive with breakfast Please clarify, is there is an additional diagnosis that is clinically appropriate for this patient? [ ] Cachexia [x ] Chronic moderate protein calorie malnutrition [ ] Chronic moderate protein calorie malnutrition and cachexia [ ] No additional diagnosis/not clinically significant [ ] Other, please specify [ ] Unable to determine In responding to this query, please exercise your independent professional judgment. The [facility] Coding Staff and Clinical Documentation Specialists appreciate your assistance in clarifying documentation, maintaining compliance with coding guidelines, accurately documenting patients condition and capturing severity of illness. The fact that a question is asked does not imply that any particular answer is desired or expected. Communication forms are a method of clarifying documentation and are made part of the Legal Health Record. Thank you in advance for your clarification. Last Reviewed September 2022 Reference: Using the ASPEN Guidelines, Undernutrition (Malnutrition) is characterized by at least two of the following six findings. The severity can be determined based on the criteria listed below. Malnutrition Characteristics for Moderate and Severe Malnutrition Type of Malnutrition Acute Illness or Injury Chronic Illness Degree of Malnutrition Non-severe (moderate) Malnutrition Severe Malnutrition Non-severe (moderate) Malnutrition Severe Malnutrition Energy Intake <75% for >7 days = 50% for = 5 days <75% for = 1 month =75% for = 1 month Weight Loss 1-2% in one week, 5% in 1 month, 7.5% in 3 months 2% in one week, >5% in 1 month, >7.5% in 3 months 5% in one month, 7.5% in 3 months, 10% in 6 months, 20% in 1 year >5% in one month, >7.5% in 3 months, >10% in 6 months, >20% in 1 year Body Fat Wasting Mild Moderate Mild Severe Muscle Wasting Mild Moderate Mild Severe Presence of Edema Mild Moderate to Severe Mild 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 Consensus statement: Academy of Nutrition and Dietetics and [place] Society for Parenteral and Enteral Nutrition: characteristics recommended for the identification and documentation of adult malnutrition (undernutrition).JPFAID J Parenter Enteral Nutr. 2012;36(3):275-283. MTDD
--- NOTE | 2023-10-08 12:44 | P.PN ---
Subjective Progress Note Date: 10/08/23 Principal diagnosis: Liver lesions This is a pleasant 67-year-old male who presented to the emergency department with complaints of abdominal pain and follow-up on abnormal outpatient ultrasound and labs. He was also reporting dizziness with movement. Patient denies any significant past medical history, former smoker. Denies any alcoholism states he drink socially when he was younger has not had a drink since his 40s. Patient states he had seen his PCP in June and had abnormal labs for his 6-month checkup. States that he had elevated liver enzymes, he had followed up with his PCP with complaints of abdominal pain, they recommended a liver ultrasound which she had done September 16 which reported suspicious for hepatic cirrhosis with multiple scattered lesions on the liver. Patient states he was called from his PCP and encouraged to come to the emergency department for further evaluation. He states he has had abdominal pain and bloating since the end of July. No previous known history of liver disease or cirrhosis. No history of hepatitis. States no weight loss, appetite has been good. He had elevated LFTs on admission, he had a CT of the abdomen and pelvis again reporting multiple liver lesions. Gastroenterology was consulted for the above. Patient reports last colonoscopy about 9 years ago. He currently denies any abdominal pain at this time states that he has been given morphine. No nausea or vomiting. He is tolerating a regular diet. Patient was also noted to be hyponatremic on admission. 10/08/2023 Patient seen and examined today as a follow-up. States pain has been well- managed with pain medication. No nausea or vomiting. He is scheduled to undergo paracentesis today with fluid collection. Chest CT reported multiple punctate densities which could be of moderate subcentimeter nodules present metastatic disease should be considered consider PET/CT for additional evaluation. Probable hepatic possible splenic metastasis. Total bilirubin 3.1 AST 103 ALT 58 alkaline phosphatase 1139 AFP tumor marker less than 3.0 CEA 8.8 CA 19-9 antigen 364. Hepatitis panel nonreactive. Objective - Vital Signs Vital signs: Vital Signs Temp 98.3 F 10/08/23 07:33 Pulse 74 10/08/23 07:33 Resp 16 10/08/23 07:33 BP 124/69 10/08/23 07:33 Pulse Ox 97 10/08/23 07:33 FiO2 Intake & Output 10/07/23 10/08/23 10/08/23 18:59 06:59 18:59 Output Total 320 Balance -320 Weight 58.3 kg 54.5 kg Output: Urine 320 Other: Voiding Method Indwelling Catheter - Exam General appearance: The patient is alert, oriented, appears in no acute distress. HET: Head is normocephalic and atraumatic. Conjunctiva pink. Sclera anicteric. Neck: Supple without lymphadenopathy. Abdomen: Soft, nontender, mildly distended. No guarding or rigidity. Extremities: Normal skin color and turgor. No pedal edema Skin: No rashes, no jaundice Neurological: No focal deficits. Alert and oriented. - Labs CBC & Chem 7: 10/08/23 02:37 10/08/23 02:37 Labs: Abnormal Lab Results - Last 24 Hours (Table) 10/07/23 10/07/23 10/07/23 Range/Units 08:20 11:30 11:30 WBC (3.8-10.6) k/uL RBC (4.30-5.90) m/uL Hgb (13.0-17.5) gm/dL Hct (39.0-53.0) % Neutrophils # (1.3-7.7) k/uL Monocytes # (0-1.0) k/uL PT (10.0-12.5) sec INR (<1.2) Sodium 125 L 123 L (135-145) mmol/L Chloride 91 L (96-109) mmol/L Creatinine 0.65 L (0.66-1.25) mg/dL Osmolality 262 L (275-295) mOsm/kg Calcium 7.9 L (8.7-10.3) mg/dL Total Bilirubin (0.2-1.3) mg/dL AST (17-59) U/L ALT (4-49) U/L Alkaline Phosphatase (38-126) U/L Total Protein (6.3-8.2) g/dL Albumin (3.5-5.0) g/dL Carcinoembryonic Ag 8.8 H (0.0-4.9) ng/mL CA 19-9 Antigen 364.0 H (0.0-34.9) U/mL Ur Random Sodium (40-220) mmol/L 10/07/23 10/07/23 10/07/23 Range/Units 11:30 14:16 19:39 WBC (3.8-10.6) k/uL RBC (4.30-5.90) m/uL Hgb (13.0-17.5) gm/dL Hct (39.0-53.0) % Neutrophils # (1.3-7.7) k/uL Monocytes # (0-1.0) k/uL PT 13.4 H (10.0-12.5) sec INR 1.3 H (<1.2) Sodium 122 L (135-145) mmol/L Chloride 92 L (96-109) mmol/L Creatinine 0.61 L (0.66-1.25) mg/dL Osmolality (275-295) mOsm/kg Calcium 7.7 L (8.7-10.3) mg/dL Total Bilirubin (0.2-1.3) mg/dL AST (17-59) U/L ALT (4-49) U/L Alkaline Phosphatase (38-126) U/L Total Protein (6.3-8.2) g/dL Albumin (3.5-5.0) g/dL Carcinoembryonic Ag (0.0-4.9) ng/mL CA 19-9 Antigen (0.0-34.9) U/mL Ur Random Sodium <20 L (40-220) mmol/L 10/07/23 10/08/23 10/08/23 Range/Units 20:28 02:37 02:37 WBC 13.9 H (3.8-10.6) k/uL RBC 4.18 L (4.30-5.90) m/uL Hgb 11.5 L (13.0-17.5) gm/dL Hct 36.0 L (39.0-53.0) % Neutrophils # 11.5 H (1.3-7.7) k/uL Monocytes # 1.1 H (0-1.0) k/uL PT (10.0-12.5) sec INR (<1.2) Sodium 122 L 122 L (135-145) mmol/L Chloride 92 L 96 L (96-109) mmol/L Creatinine (0.66-1.25) mg/dL Osmolality (275-295) mOsm/kg Calcium 7.8 L 7.6 L (8.7-10.3) mg/dL Total Bilirubin 3.1 H (0.2-1.3) mg/dL AST 103 H (17-59) U/L ALT 58 H (4-49) U/L Alkaline Phosphatase 1139 H (38-126) U/L Total Protein 4.3 L (6.3-8.2) g/dL Albumin 2.3 L (3.5-5.0) g/dL Carcinoembryonic Ag (0.0-4.9) ng/mL CA 19-9 Antigen (0.0-34.9) U/mL Ur Random Sodium (40-220) mmol/L Assessment and Plan (1) Liver lesion Narrative/Plan: 67-year-old male presenting with abdominal pain since end of July with history of elevated LFTs following with his primary care physician undergoing outpatient liver ultrasound with liver lesions noted. No previous history of alcoholism, no history of hepatitis and no known history of liver disease. CT abdomen pelvis again showing multiple liver lesions and ascites. Concern for underlying liver carcinoma. Will obtain consult to interventional radiology for paracentesis with fluid studies. Await further recommendations from oncology. Obtain AFP, hepatitis panel. Current Visit: Yes Status: Acute Priority: High Code(s): K76.9 - LIVER DISEASE, UNSPECIFIED SNOMED Code(s): 984145364 (2) Abdominal pain Current Visit: Yes Status: Acute Priority: High Code(s): R10.9 - UNSPECIFIED ABDOMINAL PAIN SNOMED Code(s): 16913274 (3) Elevated LFTs Current Visit: Yes Status: Acute Priority: High Code(s): R79.89 - OTHER SPECIFIED ABNORMAL FINDINGS OF BLOOD CHEMISTRY SNOMED Code(s): 265438608 (4) Hyponatremia Narrative/Plan: Nephrology following Current Visit: Yes Status: Acute Priority: High Code(s): E87.1 - HYPO- OSMOLALITY AND HYPONATREMIA SNOMED Code(s): 68207852 (5) Lung nodules Current Visit: Yes Status: Acute Code(s): R91.8 - OTHER NONSPECIFIC ABNORMAL FINDING OF LUNG FIELD SNOMED Code(s): 879261435 Plan: 1. Continue symptomatic supportive care 2. Diet as tolerated 3. Paracentesis ordered with fluid studies and cytology 5. Pain medication as needed 6. Continue with recommendations from oncology 7. No further workup per gastroenterology Thank you for this consultation, we will continue to follow. Dr. Tone Monroy I agree with the dictator's note, documented as a scribe by Nyasia Merino.
[2023-10-08 13:04] LABS: BUN/Creat Ratio 18.75 Ratio (12.00-20.00); Calcium 7.5 mg/dL (8.7-10.3); Carbon Dioxide 22.8 mmol/L (21.6-31.8); Chloride 93 mmol/L (96-109); Glucose 83 mg/dL (70-110); Potassium 4.4 mmol/L (3.5-5.5); Sodium 126 mmol/L (135-145)
--- NOTE | 2023-10-08 15:28 | US ---
EXAMINATION TYPE: US paracentesis abd w/image DATE OF EXAM: 10/08/2023 2:17 PM CLINICAL INDICATION:Male, 67 years old with history of ascites; COMPARISON: 10/06/2023 ATTENDING: Dr. Sumit Campos PROCEDURE: Informed consent was obtained. The risks of the procedure were extensively explained incl uding risk of damage to surrounding bowel with perforation and need for additional procedures. Proced ure was performed in the ultrasound procedure suite. Ultrasound imaging of the abdomen demonstrate as citic fluid. An appropriate access site was localized to the right lower abdomen. Timeout was taken p er protocol. The skin was prepped and draped in the usual sterile fashion and then locally anesthetiz ed with 1% lidocaine. The peritoneal cavity was then accessed via a 5-Cameroonian one-step needle/cathete r. Approximately 2200 cc of clear straw-colored fluid was obtained. Samples were sent to the lab for analysis. Postprocedural imaging of the abdomen demonstrate a minimal amount of abdominal fluid. Patient tolerated procedure well without immediate complication. Hemostasis at the procedural site w as obtained with a sterile bandage placed. The patient was monitored in the holding area following th e procedure and was subsequently discharged in stable condition. IMPRESSION: Ultrasound guided paracentesis, with approximately 2200 cc of clear straw-colored fluid drained. Path ology results pending. No immediate complications were evident.
[2023-10-08] MEDS: SODIUM CHLORIDE TAB 1 GM TAB PO SCH (15:58)
[2023-10-08 16:13] LABS: African American GFR (CKD) >90 (>60 ml/min/1.73 sqM); Anion Gap 7 mmol/L; Blood Urea Nitrogen 18 mg/dL (9-20); Calcium 7.8 mg/dL (8.4-10.2); Carbon Dioxide 23 mmol/L (22-30); Chloride 95 mmol/L (98-107); Glucose 95 mg/dL (74-99); Non-African American GFR(CKD) >90 (>60 ml/min/1.73 sqM); Potassium 4.5 mmol/L (3.5-5.1); Sodium 125 mmol/L (137-145)
--- NOTE | 2023-10-08 17:34 | P.PN ---
Subjective Progress Note Date: 10/08/23 Principal diagnosis: Liver lesions, ascites In f/u today pt is anxious about para and possible liver biopsy. No c/o uncontrolled pain at this time. Concerned that he has no social support network. Objective - Vital Signs Vital signs: Vital Signs Temp 97.9 F 10/08/23 14:44 Pulse 93 10/08/23 14:44 Resp 15 10/08/23 14:44 BP 120/76 10/08/23 14:44 Pulse Ox 97 10/08/23 14:44 FiO2 Intake & Output 10/07/23 10/08/23 10/08/23 18:59 06:59 18:59 Output Total 320 300 Balance -320 -300 Weight 58.3 kg 54.5 kg 59 kg Output: Urine 320 300 Uretheral (Howard) 150 Other: Voiding Method Indwelling Catheter Indwelling Catheter - Constitutional General appearance: Present: cooperative, no acute distress, thin - EENT Eyes: Present: EOMI ENT: Present: hearing grossly normal - Respiratory Details: resp unlabored at rest - Cardiovascular Details: skin warm, dry, well perfused - Gastrointestinal General gastrointestinal: Present: distended, normal bowel sounds, soft, tenderness - Neurologic Neurologic: Present: CNII-XII intact - Musculoskeletal Musculoskeletal: Present: generalized weakness, strength equal bilaterally - Psychiatric Psychiatric: Present: A&O x's 3, appropriate affect, intact judgment & insight - Labs CBC & Chem 7: 10/08/23 02:37 10/08/23 15:22 Labs: Abnormal Lab Results - Last 24 Hours (Table) 10/07/23 10/07/23 10/07/23 Range/Units 11:30 19:39 20:28 WBC (3.8-10.6) k/uL RBC (4.30-5.90) m/uL Hgb (13.0-17.5) gm/dL Hct (39.0-53.0) % Neutrophils # (1.3-7.7) k/uL Monocytes # (0-1.0) k/uL Sodium 122 L (137-145) mmol/L Chloride 92 L (98-107) mmol/L Calcium 7.8 L (8.4-10.2) mg/dL Total Bilirubin (0.2-1.3) mg/dL AST (17-59) U/L ALT (4-49) U/L Alkaline Phosphatase (38-126) U/L Total Protein (6.3-8.2) g/dL Albumin (3.5-5.0) g/dL Carcinoembryonic Ag 8.8 H (0.0-4.9) ng/mL CA 19-9 Antigen 364.0 H (0.0-34.9) U/mL Ur Random Sodium <20 L (40-220) mmol/L 10/08/23 10/08/23 10/08/23 Range/Units 02:37 02:37 07:55 WBC 13.9 H (3.8-10.6) k/uL RBC 4.18 L (4.30-5.90) m/uL Hgb 11.5 L (13.0-17.5) gm/dL Hct 36.0 L (39.0-53.0) % Neutrophils # 11.5 H (1.3-7.7) k/uL Monocytes # 1.1 H (0-1.0) k/uL Sodium 122 L 126 L (137-145) mmol/L Chloride 96 L 93 L (98-107) mmol/L Calcium 7.6 L 7.5 L (8.4-10.2) mg/dL Total Bilirubin 3.1 H (0.2-1.3) mg/dL AST 103 H (17-59) U/L ALT 58 H (4-49) U/L Alkaline Phosphatase 1139 H (38-126) U/L Total Protein 4.3 L (6.3-8.2) g/dL Albumin 2.3 L (3.5-5.0) g/dL Carcinoembryonic Ag (0.0-4.9) ng/mL CA 19-9 Antigen (0.0-34.9) U/mL Ur Random Sodium (40-220) mmol/L 10/08/23 Range/Units 15:22 WBC (3.8-10.6) k/uL RBC (4.30-5.90) m/uL Hgb (13.0-17.5) gm/dL Hct (39.0-53.0) % Neutrophils # (1.3-7.7) k/uL Monocytes # (0-1.0) k/uL Sodium 125 L (137-145) mmol/L Chloride 95 L (98-107) mmol/L Calcium 7.8 L (8.4-10.2) mg/dL Total Bilirubin (0.2-1.3) mg/dL AST (17-59) U/L ALT (4-49) U/L Alkaline Phosphatase (38-126) U/L Total Protein (6.3-8.2) g/dL Albumin (3.5-5.0) g/dL Carcinoembryonic Ag (0.0-4.9) ng/mL CA 19-9 Antigen (0.0-34.9) U/mL Ur Random Sodium (40-220) mmol/L - Imaging and Cardiology CT scan - chest: report reviewed Assessment and Plan (1) Abdominal pain Current Visit: Yes Status: Acute Priority: High Code(s): R10.9 - UNSPECIFIED ABDOMINAL PAIN SNOMED Code(s): 06728019 (2) Elevated LFTs Current Visit: Yes Status: Acute Priority: High Code(s): R79.89 - OTHER SPECIFIED ABNORMAL FINDINGS OF BLOOD CHEMISTRY SNOMED Code(s): 686640539 (3) Hyponatremia Current Visit: Yes Status: Acute Priority: High Code(s): E87.1 - HYPO- OSMOLALITY AND HYPONATREMIA SNOMED Code(s): 22323453 (4) Liver lesion Current Visit: Yes Status: Acute Priority: High Code(s): K76.9 - LIVER DISEASE, UNSPECIFIED SNOMED Code(s): 980582757 Plan: Liver lesions, ascites -Reviewed with the patient the concerning findings on CT of the abdomen and pelvis. Awaiting liver biopsy versus a diagnostic paracentesis with IR today. -reviewed CT chest results-several subcentimeter pulm noduels, no LAD or large lesions reported -Pt again expressed concerns that he has no support network, he lives alone and states he is unable to take care of himself. He again states he is not sure what he is going to do with the information he receives from doing this biopsy. We reviewed again that if the biopsy is positive for malignancy, Medical Oncologist can review with him the diagnosis, prognosis with and without treatment as well as options for care including active cancer treatment versus treatment of symptoms. Can also review best setting for pt-ie ECF. Patient does want to talk with Med Onc once results are available. -Pain managed at this time (used 3 doses of morphine and no norco). Adjust as needed for adequate pain control. Recommend convert to oral in anticipation of discharge, to ensure adequate pain control.
[2023-10-08 21:20] LABS: African American GFR (CKD) >90 (>60 ml/min/1.73 sqM); Anion Gap 7 mmol/L; Blood Urea Nitrogen 22 mg/dL (9-20); Calcium 7.7 mg/dL (8.4-10.2); Carbon Dioxide 21 mmol/L (22-30); Chloride 95 mmol/L (98-107); Glucose 111 mg/dL (74-99); Non-African American GFR(CKD) >90 (>60 ml/min/1.73 sqM); Potassium 5.3 mmol/L (3.5-5.1); Sodium 123 mmol/L (137-145)
[2023-10-08] MEDS: HYDROcodone/APAP 5-325MG 1 EACH TAB PO PRN (22:25)
[2023-10-09 04:31] LABS: Appearance,BF Clear (Clear)
[2023-10-09 04:40] LABS: Amylase, Fluid Source Paracentesis Fluid; Amylase,Body Fluid 13 U/L; T. Protein, Body Fluid Source Paracentesis Fluid; Total Protein, Body Fluid 1750 mg/dL
[2023-10-09 09:04] LABS: BUN/Creat Ratio 27.38 Ratio (12.00-20.00); Blood Urea Nitrogen 21.9 mg/dL (9.0-27.0); Calcium 7.4 mg/dL (8.7-10.3); Carbon Dioxide 19.9 mmol/L (21.6-31.8); Chloride 94 mmol/L (96-109); Glucose 100 mg/dL (70-110); Potassium 4.7 mmol/L (3.5-5.5); Sodium 126 mmol/L (135-145)
[2023-10-09 10:48] LABS: INR 1.2 sec (0.93-1.11); Prothrombin Time 12.8 sec (9.9-11.9)
[2023-10-09 12:27] LABS: African American GFR (CKD) >90 (>60 ml/min/1.73 sqM); Anion Gap 9 mmol/L; Blood Urea Nitrogen 22 mg/dL (9-20); Calcium 7.4 mg/dL (8.4-10.2); Carbon Dioxide 21 mmol/L (22-30); Chloride 94 mmol/L (98-107); Glucose 113 mg/dL (74-99); Non-African American GFR(CKD) >90 (>60 ml/min/1.73 sqM); Potassium 4.6 mmol/L (3.5-5.1); Sodium 124 mmol/L (137-145)
--- NOTE | 2023-10-09 14:00 | P.PN ---
Subjective Patient is seen for follow-up for hyponatremia. Started on sodium chloride tabs yesterday. Sodium had improved to 126 but it is back down to 124 today. No significant complaints today. Objective - Vital Signs Vital signs: Vital Signs Temp 98.2 F 10/09/23 12:47 Pulse 85 10/09/23 12:47 Resp 18 10/09/23 12:47 BP 130/66 10/09/23 12:47 Pulse Ox 96 10/09/23 12:47 FiO2 Intake & Output 10/08/23 10/09/23 10/09/23 18:59 06:59 18:59 Intake Total 1200 Output Total 875 150 200 Balance 325 -150 -200 Weight 59 kg 57.8 kg Intake: Intake, IV Titration 800 Amount Sodium Chloride 0.9% 1, 800 000 ml @ 75 mls/hr IV . [id number] [facility] Rx#:[id number] Oral 400 Output: Urine 875 150 200 Uretheral (Howard) 150 Other: Voiding Method Indwelling Catheter Toilet Toilet Urinal Urinal # Voids 1 1 - Exam patient is awake, comfortable, no acute distress. 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 - Labs CBC & Chem 7: 10/08/23 02:37 10/09/23 11:46 Labs: Abnormal Lab Results - Last 24 Hours (Table) 10/08/23 10/08/23 10/09/23 Range/Units 15:22 20:23 04:53 PT (9.9-11.9) sec INR (0.93-1.11) sec Sodium 125 L 123 L 126 L (137-145) mmol/L Potassium 5.3 H (3.5-5.1) mmol/L Chloride 95 L 95 L 94 L (98-107) mmol/L Carbon Dioxide 21 L 19.9 L (22-30) mmol/L Anion Gap 12.10 H (4.00-12.00) mmol/L BUN 22 H (9-20) mg/dL Creatinine 0.64 L (0.66-1.25) mg/dL BUN/Creatinine Ratio 27.38 H (12.00-20.00) Ratio Glucose 111 H (74-99) mg/dL Calcium 7.8 L 7.7 L 7.4 L (8.4-10.2) mg/dL 10/09/23 10/09/23 Range/Units 04:53 11:46 PT 12.8 H (9.9-11.9) sec INR 1.20 H (0.93-1.11) sec Sodium 124 L (137-145) mmol/L Potassium (3.5-5.1) mmol/L Chloride 94 L (98-107) mmol/L Carbon Dioxide 21 L (22-30) mmol/L Anion Gap (4.00-12.00) mmol/L BUN 22 H (9-20) mg/dL Creatinine 0.60 L (0.66-1.25) mg/dL BUN/Creatinine Ratio (12.00-20.00) Ratio Glucose 113 H (74-99) mg/dL Calcium 7.4 L (8.4-10.2) mg/dL Assessment and Plan Assessment: 1. Hyponatremia, hypovolemic and improved with normal saline initially however sodium did not improve further and therefore saline has been discontinued. Started on sodium chloride tab yesterday.sodium improved to 126 and it is back down to 124 today. Urine osmolality 568 and urine sodium less than 20. 2. Recent diagnosis of liver cancer 3. Abdominal pain Plan: Lasix 1 Repeat sodium this evening hold sodium chloride tabs as patient is hypervolemic today.
[2023-10-09] MEDS: FUROSEMIDE 10 MG/ML 4 ML VIAL IV STA (14:51)
--- NOTE | 2023-10-09 15:38 | P.PN ---
Subjective Progress Note Date: 10/09/23 Principal diagnosis: Liver lesions This is a pleasant 67-year-old male who presented to the emergency department with complaints of abdominal pain and follow-up on abnormal outpatient ultrasound and labs. He was also reporting dizziness with movement. Patient denies any significant past medical history, former smoker. Denies any alcoholism states he drink socially when he was younger has not had a drink since his 40s. Patient states he had seen his PCP in June and had abnormal labs for his 6-month checkup. States that he had elevated liver enzymes, he had followed up with his PCP with complaints of abdominal pain, they recommended a liver ultrasound which she had done September 16 which reported suspicious for hepatic cirrhosis with multiple scattered lesions on the liver. Patient states he was called from his PCP and encouraged to come to the emergency department for further evaluation. He states he has had abdominal pain and bloating since the end of July. No previous known history of liver disease or cirrhosis. No history of hepatitis. States no weight loss, appetite has been good. He had elevated LFTs on admission, he had a CT of the abdomen and pelvis again reporting multiple liver lesions. Gastroenterology was consulted for the above. Patient reports last colonoscopy about 9 years ago. He currently denies any abdominal pain at this time states that he has been given morphine. No nausea or vomiting. He is tolerating a regular diet. Patient was also noted to be hyponatremic on admission. 10/08/2023 Patient seen and examined today as a follow-up. States pain has been well- managed with pain medication. No nausea or vomiting. He is scheduled to undergo paracentesis today with fluid collection. Chest CT reported multiple punctate densities which could be of moderate subcentimeter nodules present metastatic disease should be considered consider PET/CT for additional evaluation. Probable hepatic possible splenic metastasis. Total bilirubin 3.1 AST 103 ALT 58 alkaline phosphatase 1139 AFP tumor marker less than 3.0 CEA 8.8 CA 19-9 antigen 364. Hepatitis panel nonreactive. 04/10/2023 Patient seen and examined today as a follow-up. He underwent paracentesis yesterday with 2 L of fluid removed. Cytology currently pending. States he has some abdominal discomfort near paracentesis site otherwise no complaints. Denies any nausea or vomiting. Objective - Vital Signs Vital signs: Vital Signs Temp 98.1 F 10/09/23 07:45 Pulse 86 10/09/23 07:45 Resp 16 10/09/23 07:45 BP 121/71 10/09/23 07:45 Pulse Ox 97 10/09/23 07:45 FiO2 Intake & Output 10/08/23 10/09/23 10/09/23 18:59 06:59 18:59 Intake Total 1200 Output Total 875 150 200 Balance 325 -150 -200 Weight 59 kg 57.8 kg Intake: Intake, IV Titration 800 Amount Sodium Chloride 0.9% 1, 800 000 ml @ 75 mls/hr IV . [id number] [facility] Rx#:[id number] Oral 400 Output: Urine 875 150 200 Uretheral (Howard) 150 Other: Voiding Method Indwelling Catheter Toilet Toilet Urinal Urinal # Voids 1 1 - Exam General appearance: The patient is alert, oriented, appears in no acute distress. HET: Head is normocephalic and atraumatic. Conjunctiva pink. Sclera anicteric. Neck: Supple without lymphadenopathy. Abdomen: Soft, nontender, nondistended. No guarding or rigidity. Extremities: Normal skin color and turgor. No pedal edema Skin: No rashes, no jaundice Neurological: No focal deficits. Alert and oriented. - Labs CBC & Chem 7: 10/08/23 02:37 10/09/23 11:46 Labs: Abnormal Lab Results - Last 24 Hours (Table) 10/08/23 10/08/23 10/08/23 Range/Units 07:55 15:22 20:23 Sodium 126 L 125 L 123 L (135-145) mmol/L Potassium 5.3 H (3.5-5.1) mmol/L Chloride 93 L 95 L 95 L (96-109) mmol/L Carbon Dioxide 21 L (22-30) mmol/L Anion Gap (4.00-12.00) mmol/L BUN 22 H (9-20) mg/dL Creatinine 0.64 L (0.66-1.25) mg/dL BUN/Creatinine Ratio (12.00-20.00) Ratio Glucose 111 H (74-99) mg/dL Calcium 7.5 L 7.8 L 7.7 L (8.7-10.3) mg/dL 10/09/23 Range/Units 04:53 Sodium 126 L (135-145) mmol/L Potassium (3.5-5.1) mmol/L Chloride 94 L (96-109) mmol/L Carbon Dioxide 19.9 L (22-30) mmol/L Anion Gap 12.10 H (4.00-12.00) mmol/L BUN (9-20) mg/dL Creatinine (0.66-1.25) mg/dL BUN/Creatinine Ratio 27.38 H (12.00-20.00) Ratio Glucose (74-99) mg/dL Calcium 7.4 L (8.7-10.3) mg/dL Assessment and Plan (1) Liver lesion Narrative/Plan: 67-year-old male presenting with abdominal pain since end of July with history of elevated LFTs following with his primary care physician undergoing outpatient liver ultrasound with liver lesions noted. No previous history of alcoholism, no history of hepatitis and no known history of liver disease. CT abdomen pelvis again showing multiple liver lesions and ascites. Concern for underlying liver carcinoma. Will obtain consult to interventional radiology for paracentesis with fluid studies. Await further recommendations from oncology. Obtain AFP, hepatitis panel. Current Visit: Yes Status: Acute Priority: High Code(s): K76.9 - LIVER DISEASE, UNSPECIFIED SNOMED Code(s): 196694560 (2) Abdominal pain Current Visit: Yes Status: Acute Priority: High Code(s): R10.9 - UNSPECIFIED ABDOMINAL PAIN SNOMED Code(s): 32193282 (3) Elevated LFTs Current Visit: Yes Status: Acute Priority: High Code(s): R79.89 - OTHER SPECIFIED ABNORMAL FINDINGS OF BLOOD CHEMISTRY SNOMED Code(s): 305965323 (4) Hyponatremia Narrative/Plan: Nephrology following Current Visit: Yes Status: Acute Priority: High Code(s): E87.1 - HYPO- OSMOLALITY AND HYPONATREMIA SNOMED Code(s): 90393054 (5) Lung nodules Current Visit: Yes Status: Acute Code(s): R91.8 - OTHER NONSPECIFIC ABNORMAL FINDING OF LUNG FIELD SNOMED Code(s): 696789985 Plan: 1. Continue symptomatic supportive care 2. Diet as tolerated 3. Paracentesis ordered with fluid studies and cytology 5. Pain medication as needed 6. Continue with recommendations from oncology. Outpatient follow-up with oncology. 7. No further workup per gastroenterology 8. Continue with recommendations from nephrology Thank you for this consultation, we will sign off at this time. Dr. Tone Monroy I agree with the dictator's note, documented as a scribe by Nyasia Merino.
--- NOTE | 2023-10-09 16:04 | P.PN ---
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 Patient had paracentesis done. Fluid was sent for cytology which is pending. Patient was also found to have hyponatremia. Patient was initially started on salt tablets and was also given fluids. His sodium level had initially improved but then worsened. So nephrol addi then started the patient on diuretic. Subjective Patient denying any acute complaints. Patient states that at home his air conditioning broke down and one of his friends is supposed to replace it this weekend. 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 However sodium is now worsening so nephrology present dose of IV Lasix 40 mg Liver lesions Elevated liver enzymes -Per GI no further workup from their standpoint -Status post paracentesis. Follow-up on cytology -Oncology on board -norco PRN, morphine PRN History of CAD -Continue with aspirin -Hold statin secondary to elevated liver enzymes -Continue with metoprolol Leukocytosis -No identifiable source of primary infection Mild anemia -Patient denies any GI bleeding -Continue to monitor -Oncology is following DVT prophylaxis Lovenox 40 mg subcu daily Full code GI prophylaxis Protonix 40 mg p.o. daily Disposition: Once patient's sodium level improved he will be stable for discharge home with oncology follow-up. Objective - Vital Signs Vital signs: Vital Signs Temp 98.2 F 10/09/23 12:47 Pulse 85 10/09/23 12:47 Resp 18 10/09/23 12:47 BP 130/66 10/09/23 12:47 Pulse Ox 96 10/09/23 12:47 FiO2 Intake & Output 10/08/23 10/09/23 10/09/23 18:59 06:59 18:59 Intake Total 1200 Output Total 875 150 200 Balance 325 -150 -200 Weight 59 kg 57.8 kg Intake: Intake, IV Titration 800 Amount Sodium Chloride 0.9% 1, 800 000 ml @ 75 mls/hr IV . [id number] [facility] Rx#:[id number] Oral 400 Output: Urine 875 150 200 Uretheral (Howard) 150 Other: Voiding Method Indwelling Catheter Toilet Toilet Urinal Urinal # Voids 1 1 - Labs CBC & Chem 7: 10/08/23 02:37 10/09/23 11:46 Labs: Abnormal Lab Results - Last 24 Hours (Table) 10/08/23 10/08/23 10/09/23 Range/Units 15:22 20:23 04:53 PT (9.9-11.9) sec INR (0.93-1.11) sec Sodium 125 L 123 L 126 L (137-145) mmol/L Potassium 5.3 H (3.5-5.1) mmol/L Chloride 95 L 95 L 94 L (98-107) mmol/L Carbon Dioxide 21 L 19.9 L (22-30) mmol/L Anion Gap 12.10 H (4.00-12.00) mmol/L BUN 22 H (9-20) mg/dL Creatinine 0.64 L (0.66-1.25) mg/dL BUN/Creatinine Ratio 27.38 H (12.00-20.00) Ratio Glucose 111 H (74-99) mg/dL Calcium 7.8 L 7.7 L 7.4 L (8.4-10.2) mg/dL 10/09/23 10/09/23 Range/Units 04:53 11:46 PT 12.8 H (9.9-11.9) sec INR 1.20 H (0.93-1.11) sec Sodium 124 L (137-145) mmol/L Potassium (3.5-5.1) mmol/L Chloride 94 L (98-107) mmol/L Carbon Dioxide 21 L (22-30) mmol/L Anion Gap (4.00-12.00) mmol/L BUN 22 H (9-20) mg/dL Creatinine 0.60 L (0.66-1.25) mg/dL BUN/Creatinine Ratio (12.00-20.00) Ratio Glucose 113 H (74-99) mg/dL Calcium 7.4 L (8.4-10.2) mg/dL
[2023-10-10 08:50] LABS: Basophils # (A) 0.01 X 10*3/uL (0.00-0.10); Basophils % (A) 0.1 %; Eosinophils # (A) 0.03 X 10*3/uL (0.04-0.35); Eosinophils % (A) 0.2 %; HCT 31.5 % (39.6-50.0); HGB 10.4 g/dL (13.0-17.0); MCH 27.4 pg (27.0-32.0); MCV 83.1 FL (80.0-97.0); Mean Platelet Volume 9.9 FL (9.5-12.2); Monocytes # (A) 0.74 X 10*3/uL (0.20-1.00); Monocytes % (A) 5.7 %; NRBC Per 100 WBC 0 X 10*3/uL (0.00-0.01); Neutrophils # (A) 10.85 X 10*3/uL (1.80-7.70); Neutrophils % (A) 83.3 %; Platelet Count 191 X 10*3/uL (140-440); RBC 3.79 X 10*6/uL (4.40-5.60); RDW 14.1 % (11.5-14.5); WBC 13.02 X 10*3/uL (4.50-10.00)
[2023-10-10 09:07] LABS: BUN/Creat Ratio 25.75 Ratio (12.00-20.00); Blood Urea Nitrogen 20.6 mg/dL (9.0-27.0); Calcium 7.3 mg/dL (8.7-10.3); Carbon Dioxide 23.3 mmol/L (21.6-31.8); Chloride 92 mmol/L (96-109); Glucose 71 mg/dL (70-110); Potassium 4.3 mmol/L (3.5-5.5); Sodium 125 mmol/L (135-145)
[2023-10-10] MEDS: TOLVAPTAN 15 MG TABLET PO ONE (10:51)
[2023-10-10] MEDS: FUROSEMIDE 10 MG/ML 4 ML VIAL IV STA (11:18)
--- NOTE | 2023-10-10 17:22 | P.PN ---
Subjective Progress Note Date: 10/10/23 Principal diagnosis: low Na Patient having some abdominal pain still. No nausea or vomiting. No diarrhea or constipation. No fevers or chills. No overnight issues. Objective - Vital Signs Vital signs: Vital Signs Temp 97.9 F 10/10/23 13:25 Pulse 77 10/10/23 13:25 Resp 16 10/10/23 13:25 BP 116/73 10/10/23 13:25 Pulse Ox 100 10/10/23 13:25 FiO2 Intake & Output 10/09/23 10/10/23 10/10/23 18:59 06:59 18:59 Intake Total 240 Output Total 900 250 Balance -660 -250 Weight 58.1 kg 58.1 kg Intake: Oral 240 Output: Urine 900 250 Other: Voiding Method Toilet Toilet Toilet Urinal Urinal Urinal # Voids 1 - Exam Constitutional: No acute distress, conversant, pleasant Eyes:Anicteric sclerae, moist conjunctiva, no lid-lag, PERRLA, ENMT: Oropharynx clear, no erythema, exudates Neck: Supple, FROM, no masses, or JVD, No carotid bruits, No thyromegaly Lungs: Clear to auscultation, Clear to percussion, Normal respiratory effort, no accessory muscle use Cardiovascular: Heart regular in rate and rhythm, No murmurs, gallops, or rubs, No peripheral edema Abdominal: Soft, Nontender, no guarding, rebound or rigidity, Normoactive bowel sounds, No hepatomegaly, No splenomegaly, No palpable mass Skin: Normal temperature, tone, texture, turgor, no induration, No subcutaneous nodules, No rash, lesions, No ulcers Extremities: No digital cyanosis, No clubbing, Pedal pulses intact and symmetri kelton, Radial pulses intact and symmetrical, No calf tenderness Psychiatric: Alert and oriented to person, place and time, appropriate affect, intact judgement Neuro: Muscles Strength 5/5 in all 4 extremities, Sensation to light touch grossly present throughout, Cranial nerves II-XII grossly intact, no focal sensory deficits - Labs CBC & Chem 7: 10/10/23 04:13 10/10/23 15:55 Labs: Abnormal Lab Results - Last 24 Hours (Table) 10/09/23 10/10/23 10/10/23 Range/Units 19:55 04:13 04:13 WBC 13.02 H (4.50-10.00) X 10*3/uL RBC 3.79 L (4.40-5.60) X 10*6/uL Hgb 10.4 L (13.0-17.0) g/dL Hct 31.5 L (39.6-50.0) % Immature Gran # 0.09 H (0.00-0.04) X 10*3/uL Neutrophils # 10.85 H (1.80-7.70) X 10*3/uL Eosinophils # 0.03 L (0.04-0.35) X 10*3/uL Sodium 124 L 125 L (137-145) mmol/L Chloride 92 L (96-109) mmol/L BUN/Creatinine Ratio 25.75 H (12.00-20.00) Ratio Calcium 7.3 L (8.7-10.3) mg/dL 10/10/23 10/10/23 Range/Units 04:13 15:55 WBC (4.50-10.00) X 10*3/uL RBC (4.40-5.60) X 10*6/uL Hgb (13.0-17.0) g/dL Hct (39.6-50.0) % Immature Gran # (0.00-0.04) X 10*3/uL Neutrophils # (1.80-7.70) X 10*3/uL Eosinophils # (0.04-0.35) X 10*3/uL Sodium 123 L 125 L (137-145) mmol/L Chloride (96-109) mmol/L BUN/Creatinine Ratio (12.00-20.00) Ratio Calcium (8.7-10.3) mg/dL Assessment and Plan Plan: Postural dizziness Hyponatremia consistent with SIADH -Nephrology consulted, patient was treated with Lasix, salt tablets and today was given tolvaptan. Neurology following. -Continue to follow sodium. Liver lesions Elevated liver enzymes -Per GI no further workup from their standpoint -Status post paracentesis. Follow-up on cytology -Oncology on board -norco PRN, morphine PRN History of CAD -Continue with aspirin -Hold statin secondary to elevated liver enzymes -Continue with metoprolol Leukocytosis -No identifiable source of primary infection Mild anemia -Patient denies any GI bleeding -Continue to monitor -Oncology is following DVT prophylaxis Lovenox 40 mg subcu daily Full code GI prophylaxis Protonix 40 mg p.o. daily
--- NOTE | 2023-10-10 18:16 | P.PN ---
Subjective Patient is seen for follow-up for hyponatremia. Appears hypervolemic with lower extremity edema. S/p IV lasix yesterday. Sodium did not improve much, threrefore received Samsca this morning. No significant complaints. Objective - Vital Signs Vital signs: Vital Signs Temp 97.9 F 10/10/23 13:25 Pulse 77 10/10/23 13:25 Resp 16 10/10/23 13:25 BP 116/73 10/10/23 13:25 Pulse Ox 100 10/10/23 13:25 FiO2 Intake & Output 10/09/23 10/10/23 10/10/23 18:59 06:59 18:59 Intake Total 240 220 Output Total 900 250 200 Balance -660 -250 20 Weight 58.1 kg 58.1 kg Intake: Oral 240 220 Output: Urine 900 250 200 Other: Voiding Method Toilet Toilet Toilet Urinal Urinal Urinal # Voids 1 - Exam patient is awake, comfortable, no acute distress. Examination of the heart S1 and S2 Examination of the lungs bilateral breath sounds are heard Abdomen is soft nontender, distended Examination of lower extremity shows 1+ edema bilaterally [employer] exam grossly intact - Labs CBC & Chem 7: 10/10/23 04:13 10/10/23 15:55 Labs: Abnormal Lab Results - Last 24 Hours (Table) 10/09/23 10/10/23 10/10/23 Range/Units 19:55 04:13 04:13 WBC 13.02 H (4.50-10.00) X 10*3/uL RBC 3.79 L (4.40-5.60) X 10*6/uL Hgb 10.4 L (13.0-17.0) g/dL Hct 31.5 L (39.6-50.0) % Immature Gran # 0.09 H (0.00-0.04) X 10*3/uL Neutrophils # 10.85 H (1.80-7.70) X 10*3/uL Eosinophils # 0.03 L (0.04-0.35) X 10*3/uL Sodium 124 L 125 L (137-145) mmol/L Chloride 92 L (96-109) mmol/L BUN/Creatinine Ratio 25.75 H (12.00-20.00) Ratio Calcium 7.3 L (8.7-10.3) mg/dL 10/10/23 10/10/23 Range/Units 04:13 15:55 WBC (4.50-10.00) X 10*3/uL RBC (4.40-5.60) X 10*6/uL Hgb (13.0-17.0) g/dL Hct (39.6-50.0) % Immature Gran # (0.00-0.04) X 10*3/uL Neutrophils # (1.80-7.70) X 10*3/uL Eosinophils # (0.04-0.35) X 10*3/uL Sodium 123 L 125 L (137-145) mmol/L Chloride (96-109) mmol/L BUN/Creatinine Ratio (12.00-20.00) Ratio Calcium (8.7-10.3) mg/dL Assessment and Plan Assessment: 1. Hyponatremia, improved with normal saline initially however sodium did not improve further and patient developed edema with sodium chloride tabs which are now discontinued. Status post Samsca this morning. Also received IV Lasix yesterday and today. Urine osmolality 568 and urine sodium less than 20. 2. Recent diagnosis of liver cancer 3. Abdominal pain Plan: Repeat Lasix 1 Samsca 15 mg x 1 today Repeat sodium this evening Maintain fluid restriction. Patient is encouraged to increase oral protein intake
[2023-10-10] MEDS: ZOLPIDEM 5 MG TAB PO PRN (21:31)
--- NOTE | 2023-10-11 08:33 | P.PN ---
Subjective Patient is seen in follow-up for hyponatremia. Sodium level 125 as of last night. Received Samsca yesterday. Has been voiding. Oral intake fair. No vomiting or diarrhea. Vital signs are stable. General: No acute distress. HEENT: Head exam is unremarkable. LUNGS: No audible rhonchi or wheezes. HEART: Rate and Rhythm are regular. ABDOMEN: Nontender. EXTREMITITES: Trace edema. Objective - Vital Signs Vital signs: Vital Signs Temp 98.3 F 10/11/23 07:34 Pulse 81 10/11/23 07:34 Resp 16 10/11/23 07:34 BP 113/66 10/11/23 07:34 Pulse Ox 97 10/11/23 07:34 FiO2 Intake & Output 10/10/23 10/11/23 10/11/23 18:59 06:59 18:59 Intake Total 220 Output Total 200 Balance 20 Weight 58.1 kg Intake: Oral 220 Output: Urine 200 Other: Voiding Method Toilet Toilet Urinal Urinal # Voids 3 - Labs CBC & Chem 7: 10/10/23 04:13 10/10/23 21:09 Labs: Abnormal Lab Results - Last 24 Hours (Table) 10/10/23 10/10/23 10/10/23 Range/Units 04:13 04:13 12:07 WBC 13.02 H (4.50-10.00) X 10*3/uL RBC 3.79 L (4.40-5.60) X 10*6/uL Hgb 10.4 L (13.0-17.0) g/dL Hct 31.5 L (39.6-50.0) % Immature Gran # 0.09 H (0.00-0.04) X 10*3/uL Neutrophils # 10.85 H (1.80-7.70) X 10*3/uL Eosinophils # 0.03 L (0.04-0.35) X 10*3/uL Sodium 125 L (135-145) mmol/L Chloride 92 L (96-109) mmol/L BUN/Creatinine Ratio 25.75 H (12.00-20.00) Ratio Calcium 7.3 L (8.7-10.3) mg/dL Urine Osmolality 294 L (400-1100) mOsm/kg 10/10/23 10/10/23 Range/Units 15:55 21:09 WBC (4.50-10.00) X 10*3/uL RBC (4.40-5.60) X 10*6/uL Hgb (13.0-17.0) g/dL Hct (39.6-50.0) % Immature Gran # (0.00-0.04) X 10*3/uL Neutrophils # (1.80-7.70) X 10*3/uL Eosinophils # (0.04-0.35) X 10*3/uL Sodium 125 L 125 L (135-145) mmol/L Chloride (96-109) mmol/L BUN/Creatinine Ratio (12.00-20.00) Ratio Calcium (8.7-10.3) mg/dL Urine Osmolality (400-1100) mOsm/kg Assessment and Plan Plan: Assessment: 1. Hyponatremia, slightly hypervolemic. Sodium level 125 as of last night. Urine sodium less than 20 and repeat 73. Urine osmolality initially 568 and 294 on repeat. TSH normal. 2. Liver lesions. Concern for malignancy. Oncology following. 3. Ascites status post paracentesis October 08, 2023 with 2.2 L drained. Plan: Maintain fluid restriction. Encouraged oral intake, particularly protein. Add Aldactone 25 mg once daily. Add Lasix 20 mg once daily. Morning labs pending.
[2023-10-11 09:45] LABS: BUN/Creat Ratio 25.22 Ratio (12.00-20.00); Blood Urea Nitrogen 22.7 mg/dL (9.0-27.0); Calcium 7.7 mg/dL (8.7-10.3); Carbon Dioxide 23.7 mmol/L (21.6-31.8); Chloride 96 mmol/L (96-109); Glucose 78 mg/dL (70-110); Potassium 4.6 mmol/L (3.5-5.5); Sodium 131 mmol/L (135-145)
[2023-10-11] MEDS: FUROSEMIDE 20 MG TAB PO SCH (10:01)
[2023-10-11] MEDS: SPIRONOLACTONE 25 MG TAB PO SCH (10:01)
--- NOTE | 2023-10-11 15:40 | P.PN ---
Subjective Progress Note Date: 10/11/23 Patient is a 67-year-old who presented with abdominal pain x 3 days duration with postural dizziness. Found to have elevated liver enzymes on recent well visit exam with liver lesions found on ultrasound. In the ER underwent extensive evaluation. Initial vital signs normal. Laboratory analysis remarkable for white blood cell count of 13.4, sodium 120, bilirubin 3.4, AST 101, ALT 59, alkaline phosphatase 1187. Initial CT head showed no intracranial process but possibly right maxillary sinusitis. CT abdomen and pelvis demonstrated multiple hypodense masses scattered throughout the liver suspicious for metastatic disease. He was admitted and received 1 L of normal saline in the emergency department, with serial electrolytes and GI consultation. GI recommended AFP and hepatitis panel as well as paracentesis with cytology. Patient underwent paracentesis on 10/08/2023. He is also being followed by oncology and nephrology. CT chest performed which demonstrated multiple punctate densities in the lung possible metastatic disease as well as possible splenic metastasis. Patient diagnosed with hypervolemic hyponatremia maintained on fluid restriction. Given 1 dose of Samsca on 10/09. Patient seen and examined at bedside. He had a bad reaction to Ambien last night per nursing. Patient states he feels very groggy and out of it but has tolerated Ambien in the past. He denies any overt pain. He is frustrated that his paracentesis cytology results are not yet available. Pain is well- controlled today. Vital signs reviewed General: Nontoxic, no distress, appears at stated age Cardiovascular: S1S2 reg, no murmur Lungs: CTA bilateral, no rhonchi, no rales, no accessory muscle use Abdominal: Soft, nontender to palpation, no guarding Ext: No gross muscle atrophy, 1+ edema bilateral lower extremities, no contractures Neuro: CN II-XI grossly intact, no focal neuro deficits Psych: Alert, oriented, appropriate affect Assessment/Plan: Liver lesions and multiple pulmonary lesions Transaminitis -Oncology following -Awaiting cytology results from paracentesis 10/07 -Continue with [place] and morphine as needed -Statin on hold -Hepatitis A, B, and C are negative -Elevated CEA and CA 19-9 Hypervolemic hyponatremia -Urine sodium less than 20 with repeat at 73, urine osmolality 568 and then 492. -Nephrology note reviewed: Add Aldactone 25 mg once daily and Lasix 20 mg once daily, continue to monitor electrolytes -Repeat sodium level at 1500 and in a.m. Insomnia -Discontinue Ambien as patient had poor reaction, start melatonin 5 mg at night as needed Mild leukocytosis, felt to be reactive Chronic: HTN, CAD status post [place] Imaging: None new Data Review: No new labs available DVT prophylaxis: Start heparin for DVT prophylaxis as patient is not moving much Anticipated discharge date: Pending clinical course Anticipated discharge place: Pending clinical course This dictation was prepared using [employer] voice recognition software. Though every attempt is made to correct errors during dictation some may still exist. Objective - Vital Signs Vital signs: Vital Signs Temp 98.8 F 10/11/23 13:40 Pulse 82 10/11/23 13:40 Resp 18 10/11/23 13:40 BP 118/77 10/11/23 13:40 Pulse Ox 97 10/11/23 13:40 FiO2 Intake & Output 10/10/23 10/11/23 10/11/23 18:59 06:59 18:59 Intake Total 220 Output Total 200 Balance 20 Weight 58.1 kg Intake: Oral 220 Output: Urine 200 Other: Voiding Method Toilet Toilet Toilet Urinal Urinal Urinal # Voids 3 - Labs CBC & Chem 7: 10/10/23 04:13 10/11/23 04:57 Labs: Abnormal Lab Results - Last 24 Hours (Table) 10/10/23 10/10/23 10/10/23 Range/Units 12:07 15:55 21:09 Sodium 125 L 125 L (137-145) mmol/L BUN/Creatinine Ratio (12.00-20.00) Ratio Calcium (8.7-10.3) mg/dL Urine Osmolality 294 L (400-1100) mOsm/kg 10/11/23 Range/Units 04:57 Sodium 131 L (137-145) mmol/L BUN/Creatinine Ratio 25.22 H (12.00-20.00) Ratio Calcium 7.7 L (8.7-10.3) mg/dL Urine Osmolality (400-1100) mOsm/kg
[2023-10-11 16:20] LABS: African American GFR (CKD) >90 (>60 ml/min/1.73 sqM); Anion Gap 7 mmol/L; Blood Urea Nitrogen 24 mg/dL (9-20); Calcium 7.7 mg/dL (8.4-10.2); Carbon Dioxide 24 mmol/L (22-30); Chloride 98 mmol/L (98-107); Glucose 100 mg/dL (74-99); Non-African American GFR(CKD) >90 (>60 ml/min/1.73 sqM); Sodium 129 mmol/L (137-145)
[2023-10-11] MEDS: MELATONIN 5 MG TABLET PO PRN (21:01)
[2023-10-12 06:05] LABS: HCT 31.4 % (39.0-53.0); HGB 10.1 gm/dL (13.0-17.5); MCH 27.7 pg (25.0-35.0); MCHC 32.1 g/dL (31.0-37.0); MCV 86.3 fL (80.0-100.0); Mean Platelet Volume 7.4; Platelet Count 172 k/uL (150-450); RBC 3.64 m/uL (4.30-5.90); RDW 14.4 % (11.5-15.5); WBC 9.4 k/uL (3.8-10.6)
[2023-10-12 06:14] LABS: ALT 80 U/L (4-49); AST 146 U/L (17-59); African American GFR (CKD) >90 (>60 ml/min/1.73 sqM); Albumin 2.2 g/dL (3.5-5.0); Albumin/Globulin Ratio 1.1; Anion Gap 6 mmol/L; Blood Urea Nitrogen 26 mg/dL (9-20); Calcium 7.5 mg/dL (8.4-10.2); Carbon Dioxide 21 mmol/L (22-30); Chloride 101 mmol/L (98-107); Glucose 98 mg/dL (74-99); Non-African American GFR(CKD) >90 (>60 ml/min/1.73 sqM); Sodium 128 mmol/L (137-145); Total Bilirubin 3.4 mg/dL (0.2-1.3); Total Protein 4.2 g/dL (6.3-8.2)
[2023-10-12 06:28] LABS: Alkaline Phosphatase 1340 U/L (38-126)
--- NOTE | 2023-10-12 12:14 | P.PN ---
Subjective Patient is seen in follow-up for hyponatremia. Sodium level 128 this morning. Has been voiding. Oral intake fair. No vomiting or diarrhea. Vital signs are stable. General: No acute distress. HEENT: Head exam is unremarkable. LUNGS: No audible rhonchi or wheezes. HEART: Rate and Rhythm are regular. ABDOMEN: Nontender. EXTREMITITES: Trace edema. Objective - Vital Signs Vital signs: Vital Signs Temp 97.7 F 10/12/23 07:44 Pulse 77 10/12/23 07:44 Resp 16 10/12/23 07:44 BP 109/68 10/12/23 07:44 Pulse Ox 94 L 10/12/23 07:44 FiO2 Intake & Output 10/11/23 10/12/23 10/12/23 18:59 06:59 18:59 Intake Total 240 250 118 Output Total 500 100 Balance 240 -250 18 Weight 51 kg Intake: IV 10 Invasive Line 2 10 Oral 240 240 118 Output: Urine 500 100 Other: Voiding Method Toilet Toilet Urinal Urinal - Labs CBC & Chem 7: 10/12/23 05:24 10/12/23 05:24 Labs: Abnormal Lab Results - Last 24 Hours (Table) 10/11/23 10/12/23 10/12/23 Range/Units 15:45 05:24 05:24 RBC 3.64 L (4.30-5.90) m/uL Hgb 10.1 L (13.0-17.5) gm/dL Hct 31.4 L (39.0-53.0) % Sodium 129 L 128 L (137-145) mmol/L Carbon Dioxide 21 L (22-30) mmol/L BUN 24 H 26 H (9-20) mg/dL Glucose 100 H (74-99) mg/dL Calcium 7.7 L 7.5 L (8.4-10.2) mg/dL Total Bilirubin 3.4 H (0.2-1.3) mg/dL AST 146 H (17-59) U/L ALT 80 H (4-49) U/L Alkaline Phosphatase 1340 H (38-126) U/L Total Protein 4.2 L (6.3-8.2) g/dL Albumin 2.2 L (3.5-5.0) g/dL Assessment and Plan Plan: Assessment: 1. Hyponatremia, slightly hypervolemic. Sodium level 128 this morning. Urine sodium less than 20 and repeat 73. Urine osmolality initially 568 and 294 on repeat. TSH normal. 2. Liver lesions. Concern for malignancy. Oncology following. 3. Ascites status post paracentesis October 08, 2023 with 2.2 L drained. Plan: Maintain fluid restriction. Encouraged oral intake, particularly protein. Maintain Aldactone and Lasix. Repeat labs in the morning.
--- NOTE | 2023-10-12 18:11 | P.PN ---
Subjective Progress Note Date: 10/12/23 (delayed charting seen at 0930) Patient is a 67-year-old who presented with abdominal pain x 3 days duration with postural dizziness. Found to have elevated liver enzymes on recent well visit exam with liver lesions found on ultrasound. In the ER underwent extensive evaluation. Initial vital signs normal. Laboratory analysis remarkable for white blood cell count of 13.4, sodium 120, bilirubin 3.4, AST 101, ALT 59, alkaline phosphatase 1187. Initial CT head showed no intracranial process but possibly right maxillary sinusitis. CT abdomen and pelvis demonstrated multiple hypodense masses scattered throughout the liver suspicious for metastatic disease. He was admitted and received 1 L of normal saline in the emergency department, with serial electrolytes and GI consultation. GI re commended AFP and hepatitis panel as well as paracentesis with cytology. Patient underwent paracentesis on 10/08/2023. He is also being followed by oncology and nephrology. CT chest performed which demonstrated multiple punctate densities in the lung possible metastatic disease as well as possible splenic metastasis. Patient diagnosed with hypervolemic hyponatremia maintained on fluid restriction. Given 1 dose of Samsca on 10/09. Patient seen and examined at bedside. Feeling better today. Breathing well. Abdominal pain is lessening. Anxious to receive results of cytology. We discussed that likely could be discharged either way once sodium stable as has appointment with oncology on 10/14. Vital signs reviewed General: Nontoxic, no distress, appears at stated age Cardiovascular: S1S2 reg, no murmur Lungs: CTA bilateral, no rhonchi, no rales, no accessory muscle use Abdominal: Soft, nontender to palpation, no guarding Ext: No gross muscle atrophy, no edema bilateral lower extremities, no contractures Neuro: CN II-XI grossly intact, no focal neuro deficits Psych: Alert, oriented, appropriate affect Assessment/Plan: Liver lesions and multiple pulmonary lesions Transaminitis -Oncology following, awiat further recs -Awaiting cytology results from paracentesis 10/07 -Continue with [place] and morphine as needed -Statin on hold -Hepatitis A, B, and C are negative -Elevated CEA and CA 19-9 Hypervolemic hyponatremia -Nephrology note reviewed: Maintain fluid restriction, maintain Aldactone and Lasix -Urine sodium less than 20 with repeat at 73, urine osmolality 568 and then 492. -Aldactone 25 mg once daily and Lasix 20 mg once daily likely will need to be discharged on these medications. -Repeat sodium level in a.m. Insomnia -melatonin 5 mg at night as needed Mild leukocytosis, felt to be reactive Chronic: HTN, CAD status post [place] Imaging: None new Data Review: Labs reviewed from today unremarkable for sodium 128, bilirubin 3.4, AST 146, AL T 80, alkaline phosphatase 1340. DVT prophylaxis: Lovenox 40 mg daily Anticipated discharge date: in 24- 48 hours, home This dictation was prepared using [employer] voice recognition software. Wai styles every attempt is made to correct errors during dictation some may still exist. Objective - Vital Signs Vital signs: Vital Signs Temp 98.3 F 10/12/23 14:07 Pulse 75 10/12/23 14:07 Resp 16 10/12/23 14:07 BP 111/71 10/12/23 14:07 Pulse Ox 97 10/12/23 14:07 FiO2 Intake & Output 10/11/23 10/12/23 10/12/23 18:59 06:59 18:59 Intake Total 240 250 598 Output Total 500 100 Balance 240 -250 498 Weight 51 kg Intake: IV 10 Invasive Line 2 10 Oral 240 240 598 Output: Urine 500 100 Other: Voiding Method Toilet Toilet Urinal Urinal - Labs CBC & Chem 7: 10/12/23 05:24 10/12/23 05:24 Labs: Abnormal Lab Results - Last 24 Hours (Table) 10/12/23 10/12/23 Range/Units 05:24 05:24 RBC 3.64 L (4.30-5.90) m/uL Hgb 10.1 L (13.0-17.5) gm/dL Hct 31.4 L (39.0-53.0) % Sodium 128 L (137-145) mmol/L Carbon Dioxide 21 L (22-30) mmol/L BUN 26 H (9-20) mg/dL Calcium 7.5 L (8.4-10.2) mg/dL Total Bilirubin 3.4 H (0.2-1.3) mg/dL AST 146 H (17-59) U/L ALT 80 H (4-49) U/L Alkaline Phosphatase 1340 H (38-126) U/L Total Protein 4.2 L (6.3-8.2) g/dL Albumin 2.2 L (3.5-5.0) g/dL
[2023-10-12] MEDS: CALCIUM CARBONATE 500 MG CHEWABLE PO PRN (19:22)
[2023-10-13] MEDS: ENOXAPARIN 40 MG/0.4 ML SYRINGE SQ SCH (08:15)
[2023-10-13 10:57] LABS: ALT 90 U/L (10-49); AST 138 U/L (14-35); Albumin 2.5 g/dL (3.8-4.9); Albumin/Globulin Ratio 1.47 Ratio (1.60-3.17); Alkaline Phosphatase 1509 U/L (41-126); BUN/Creat Ratio 27.22 Ratio (12.00-20.00); Blood Urea Nitrogen 24.5 mg/dL (9.0-27.0); Calcium 7.5 mg/dL (8.7-10.3); Carbon Dioxide 22.9 mmol/L (21.6-31.8); Chloride 98 mmol/L (96-109); Globulin 1.7 g/dL (1.6-3.3); Glucose 99 mg/dL (70-110); Potassium 4.2 mmol/L (3.5-5.5); Sodium 132 mmol/L (135-145); Total Bilirubin 2.9 mg/dL (0.3-1.2); Total Protein 4.2 g/dL (6.2-8.2)
--- NOTE | 2023-10-13 13:10 | P.PN ---
Subjective Patient is seen in follow-up for hyponatremia. Sodium level 132 this morning. Has been voiding. Oral intake fair. No vomiting or diarrhea. Vital signs are stable. General: No acute distress. HEENT: Head exam is unremarkable. LUNGS: No audible rhonchi or wheezes. HEART: Rate and Rhythm are regular. ABDOMEN: Nontender. EXTREMITITES: Trace edema. Objective - Vital Signs Vital signs: Vital Signs Temp 98.1 F 10/13/23 11:59 Pulse 89 10/13/23 11:59 Resp 16 10/13/23 11:59 BP 107/73 10/13/23 11:59 Pulse Ox 96 10/13/23 11:59 FiO2 Intake & Output 10/12/23 10/13/23 10/13/23 18:59 06:59 18:59 Intake Total 598 240 Output Total 100 150 Balance 498 90 Weight 55 kg Intake: Oral 598 240 Output: Urine 100 150 Other: # Voids 3 - Labs CBC & Chem 7: 10/12/23 05:24 10/13/23 03:00 Labs: Abnormal Lab Results - Last 24 Hours (Table) 10/13/23 Range/Units 03:00 Sodium 132 L (135-145) mmol/L BUN/Creatinine Ratio 27.22 H (12.00-20.00) Ratio Calcium 7.5 L (8.7-10.3) mg/dL Total Bilirubin 2.9 H (0.3-1.2) mg/dL AST 138 H (14-35) U/L ALT 90 H (10-49) U/L Alkaline Phosphatase 1509 H (41-126) U/L Total Protein 4.2 L (6.2-8.2) g/dL Albumin 2.5 L (3.8-4.9) g/dL Albumin/Globulin Ratio 1.47 L (1.60-3.17) Ratio Assessment and Plan Plan: Assessment: 1. Hyponatremia, slightly hypervolemic. Sodium level 128 this morning. Urine sodium less than 20 and repeat 73. Urine osmolality initially 568 and 294 on repeat. TSH normal. 2. Liver lesions. Concern for malignancy. Oncology following. 3. Ascites status post paracentesis October 08, 2023 with 2.2 L drained. Plan: Maintain fluid restriction. Encouraged oral intake, particularly protein. Maintain Aldactone and Lasix. Repeat labs in the morning.
--- NOTE | 2023-10-13 16:14 | P.PN ---
Subjective Progress Note Date: 10/13/23 Principal diagnosis: Liver lesions, ascites In f/u today pt is eating his lunch, no acute c/o. Objective - Vital Signs Vital signs: Vital Signs Temp 98.1 F 10/13/23 11:59 Pulse 89 10/13/23 11:59 Resp 16 10/13/23 11:59 BP 107/73 10/13/23 11:59 Pulse Ox 96 10/13/23 11:59 FiO2 Intake & Output 10/12/23 10/13/23 10/13/23 18:59 06:59 18:59 Intake Total 598 240 240 Output Total 100 150 Balance 498 90 240 Weight 55 kg Intake: Oral 598 240 240 Output: Urine 100 150 Other: # Voids 3 - Constitutional General appearance: Present: cooperative, no acute distress, thin - EENT Eyes: Present: EOMI ENT: Present: hearing grossly normal - Respiratory Details: resp even, unlabored - Peripheral edema foot Peripheral Edema: bilateral: 1+ - Integumentary Integumentary: Present: jaundiced - Neurologic Neurologic: Present: CNII-XII intact - Musculoskeletal Musculoskeletal: Present: generalized weakness - Psychiatric Psychiatric: Present: A&O x's 3, appropriate affect, intact judgment & insight - Labs CBC & Chem 7: 10/12/23 05:24 10/13/23 03:00 Labs: Abnormal Lab Results - Last 24 Hours (Table) 10/13/23 Range/Units 03:00 Sodium 132 L (135-145) mmol/L BUN/Creatinine Ratio 27.22 H (12.00-20.00) Ratio Calcium 7.5 L (8.7-10.3) mg/dL Total Bilirubin 2.9 H (0.3-1.2) mg/dL AST 138 H (14-35) U/L ALT 90 H (10-49) U/L Alkaline Phosphatase 1509 H (41-126) U/L Total Protein 4.2 L (6.2-8.2) g/dL Albumin 2.5 L (3.8-4.9) g/dL Albumin/Globulin Ratio 1.47 L (1.60-3.17) Ratio Assessment and Plan (1) Abdominal pain Current Visit: Yes Status: Acute Priority: High Code(s): R10.9 - UNSPECIFIED ABDOMINAL PAIN SNOMED Code(s): 24662589 (2) Elevated LFTs Current Visit: Yes Status: Acute Priority: High Code(s): R79.89 - OTHER SPECIFIED ABNORMAL FINDINGS OF BLOOD CHEMISTRY SNOMED Code(s): 735735308 (3) Hyponatremia Current Visit: Yes Status: Acute Priority: High Code(s): E87.1 - HYPO- OSMOLALITY AND HYPONATREMIA SNOMED Code(s): 83933225 (4) Liver lesion Current Visit: Yes Status: Acute Priority: High Code(s): K76.9 - LIVER DISEASE, UNSPECIFIED SNOMED Code(s): 608355166 Plan: Liver lesions, ascites -Concerning findings on CT of the abdomen and pelvis, liver lesions, ascites. -CT chest reports several subcentimeter pulm noduels, no LAD or large lesions reported -S/P liver biopsy and 2200cc paracentesis. Non-diagnostic, no malignancy in specimen. -Concerning that despite neg results that there is an underlying malignancy. Will discuss case with Radiology and Med Onc. Would they like to do another li kimber[place] biopsy or should a PET be planned for to see if there are any FDG avid lesions, that may help with target for biopsy. Will update POC with recommendations -Pain managed at this time by IM. Pain is controlled.
--- NOTE | 2023-10-13 18:43 | P.PN ---
Subjective Progress Note Date: 10/13/23 Hospital course: Patient is a very pleasant 67-year-old male with a past medical history of nonobstructive coronary artery disease and hyperlipidemia. He presented to the hospital on 10/06/2023 with a chief complaint of abdominal pain x 3 days accompanied by postural dizziness. Upon arrival to the hospital, patient underwent evaluation in the emergency department. Vital signs upon arrival show blood pressure 132/91, heart rate 98, respiratory rate 18, temp 98.7 F, and SpO2 of 99% on room air. EKG completed showing normal sinus rhythm at 83 bpm with no noted T wave or ST abnormalities upon personal review and interpretation. Brain was negative for acute intracranial process showing right maxillary sinus air-fluid level rule out acute right maxillary sinusitis. CT abdomen and pelvis with contrast was completed showing multiple hypodense masses scattered throughout the liver suspicious for metastatic disease with ascites through the pelvis and abdomen. Labs completed and reviewed. CBC showing leukocytosis with WBC count of 13.4 and normocytic anemia with hemoglobin of 12.3. BMP showing hyponatremia with sodium of 120, hypochloremia with chloride of 88, hypocarbia with bicarb of 20, and anion gap of 12. Blood glucose was 106. Magnesium 1.9. Liver profile showing hyperbilirubinemia with transaminitis with total bili of 3.4, AST of 101, ALT of 59, and alkaline phosphatase of 1187. Patient was admitted under our services with consultation to gastroenterology, nephrology and hematology/oncology. Hepatitis serologies negative. AFP tumor marker less than 3.00, Carcinoembryonic Ag 8.8 and CA 19/9 antigen 364.0. On 10/07/[address] chest with contrast showing multiple punctate densities which could represent moderate subcentimeter nodules concerning for metastatic process with probable hepatic and possible splenic metastasis. 10/08/2023 patient underwent ultrasound-guided paracentesis with removal of 2200 cc of clear straw-colored fluid. Pathology reports reporting ascitic fluid acute and chronic inflammatory cells with macrophages and reactive mesothelial cells with current specimen negative for diagnostic malignancy. Retreatment of hypervolemic hyponatremia patient has been maintained on fluid restriction and received 1 dose of Samsca on 10/10/2023. Physical Exam: Patient seen and examined at bedside. Vital signs reviewed General: Nontoxic, no distress, appears at stated age Skin/Derm: Warm and dry, mild jaundice Cardiovascular: S1S2 reg, no murmur Lungs: CTA bilateral, no rhonchi, no rales, no accessory muscle use Abdominal: Distended, nontender to palpation, no guarding Ext: No gross muscle atrophy, no edema bilateral lower extremities, no contractures Neuro: CN II-XI grossly intact, no focal neuro deficits Psych: Alert, oriented, appropriate affect Assessment/Plan: Liver lesions and multiple pulmonary lesions Acute Transaminitis with hyperbilirubinemia -Oncology following, discussed plan of care with oncology [facility] awaiting recommendations from rad unk and whether or not to proceed with liver biopsy or plan for outpatient PET scan. -Pathology reports reporting ascitic fluid acute and chronic inflammatory cells with macrophages and reactive mesothelial cells with current specimen negative for diagnostic malignancy. -Continue with symptomatic care and pain management with [place] 5/325 mg tablets every 4 hours as needed for mild to moderate pain and and morphine 4 mg IVP every 4 hours as needed for severe pain. -Statin on hold secondary to acute transaminitis -Hepatitis A, B, and C are negative -Elevated CEA and CA 19-9. Hypervolemic hyponatremia -Nephrology following and reviewed documentation in chart. -Maintain fluid restriction 1800 cc daily, -Continue Aldactone 25 mg daily and Lasix 20 mg daily. -Urine sodium less than 20 with repeat at 73, urine osmolality 568 and then 492. -Repeat sodium level in a.m. Insomnia -Continue melatonin 5 mg at night as needed CAD Hypertension -Continue daily medication regimen with metoprolol 100 mg daily, continue to hold rosuvastatin secondary to acute transaminitis with hyperbilirubinemia. Mild leukocytosis, felt to be reactive. Resolved. Data and Imaging Reviewed: -Pathology reports reporting ascitic fluid acute and chronic inflammatory cells with macrophages and reactive mesothelial cells with current specimen negative for diagnostic malignancy. -Morning labs completed and reviewed. BMP showing improvement of hyponatremia with sodium of 132. Liver profile showing persistent hyperbilirubinemia with transaminitis with total bili of 2.9, AST of 138, ALT of 90, and alkaline [place] sphatase of 1509. -Vital signs reviewed. Blood pressure 109/71, heart rate 77, respiratory rate 16, temp 98.3 F, and SpO2 of 96% on room air. DVT prophylaxis: Lovenox 40 mg daily Anticipated discharge date: Likely within the next 24- 48 hours pending recommendations from heme-onc on whether to proceed with liver biopsy versus discharge home for outpatient scheduling of PET scan. Anticipated discharge place: Home Patient was seen independently by Nurse Pracitioner. This document was prepared using [employer] dictation software. Please allow for errors in cellular tower climber, while rare they do occur. I reviewed the documentation as provided by the CLEO above, who is the original author of this note. I agree with the documented assessment and plan, with the following changes: none Objective - Vital Signs Vital signs: Vital Signs Temp 98.3 F 10/13/23 07:25 Pulse 77 10/13/23 07:25 Resp 16 10/13/23 07:25 BP 109/71 10/13/23 07:25 Pulse Ox 96 10/13/23 07:25 FiO2 Intake & Output 10/12/23 10/13/23 10/13/23 18:59 06:59 18:59 Intake Total 598 240 Output Total 100 150 Balance 498 90 Weight 55 kg Intake: Oral 598 240 Output: Urine 100 150 Other: # Voids 3 - Labs CBC & Chem 7: 10/12/23 05:24 10/13/23 03:00
[2023-10-14 10:41] LABS: INR 1.11 sec (0.93-1.11); Prothrombin Time 11.9 sec (9.9-11.9)
[2023-10-14 11:08] LABS: BUN/Creat Ratio 28.89 Ratio (12.00-20.00); Carbon Dioxide 26.2 mmol/L (21.6-31.8); Chloride 100 mmol/L (96-109); Glucose 109 mg/dL (70-110); Potassium 4.6 mmol/L (3.5-5.5); Sodium 135 mmol/L (135-145)
[2023-10-14 11:11] LABS: ALT 101 U/L (10-49); AST 151 U/L (14-35); Albumin 2.7 g/dL (3.8-4.9); Albumin/Globulin Ratio 1.59 Ratio (1.60-3.17); Calcium 7.8 mg/dL (8.7-10.3); Globulin 1.7 g/dL (1.6-3.3); Total Bilirubin 3.1 mg/dL (0.3-1.2); Total Protein 4.4 g/dL (6.2-8.2)
[2023-10-14 11:22] LABS: Alkaline Phosphatase 1706 U/L (41-126)
[2023-10-14 11:35] LABS: HCT 33.6 % (39.6-50.0); HGB 10.8 g/dL (13.0-17.0); MCH 27.1 pg (27.0-32.0); MCHC 32.1 g/dL (32.0-37.0); MCV 84.4 FL (80.0-97.0); Mean Platelet Volume 10.8 FL (9.5-12.2); NRBC Per 100 WBC 0 X 10*3/uL (0.00-0.01); Platelet Count 173 X 10*3/uL (140-440); RBC 3.98 X 10*6/uL (4.40-5.60); RDW 14.9 % (11.5-14.5)
--- NOTE | 2023-10-14 13:35 | P.PN ---
Subjective Patient is seen in follow-up for hyponatremia. Sodium level 135 this morning. Has been voiding. Oral intake fair. No vomiting or diarrhea. No active complaints. Vital signs are stable. General: No acute distress. HEENT: Head exam is unremarkable. LUNGS: No audible rhonchi or wheezes. HEART: Rate and Rhythm are regular. ABDOMEN: Nontender. EXTREMITITES: Trace edema. Objective - Vital Signs Vital signs: Vital Signs Temp 98.1 F 10/14/23 12:13 Pulse 92 10/14/23 12:13 Resp 16 10/14/23 12:13 BP 116/81 10/14/23 12:13 Pulse Ox 99 10/14/23 12:13 FiO2 Intake & Output 10/13/23 10/14/23 10/14/23 18:59 06:59 18:59 Intake Total 240 Output Total 300 Balance 240 -300 Weight 53.5 kg 53.5 kg Intake: Oral 240 Output: Urine 300 Other: # Voids 1 # Bowel Movements 1 - Labs CBC & Chem 7: 10/14/23 06:39 10/14/23 06:39 Labs: Abnormal Lab Results - Last 24 Hours (Table) 10/14/23 10/14/23 Range/Units 06:39 06:39 RBC 3.98 L (4.40-5.60) X 10*6/uL Hgb 10.8 L (13.0-17.0) g/dL Hct 33.6 L (39.6-50.0) % RDW 14.9 H (11.5-14.5) % BUN/Creatinine Ratio 28.89 H (12.00-20.00) Ratio Calcium 7.8 L (8.7-10.3) mg/dL Total Bilirubin 3.1 H (0.3-1.2) mg/dL AST 151 H (14-35) U/L ALT 101 H (10-49) U/L Alkaline Phosphatase 1706 H (41-126) U/L Total Protein 4.4 L (6.2-8.2) g/dL Albumin 2.7 L (3.8-4.9) g/dL Albumin/Globulin Ratio 1.59 L (1.60-3.17) Ratio Assessment and Plan Plan: Assessment: 1. Hyponatremia, slightly hypervolemic. Sodium level 135 this morning. Urine sodium less than 20 and repeat 73. Urine osmolality initially 568 and 294 on repeat. TSH normal. 2. Liver lesions. Concern for malignancy. Oncology following. 3. Ascites status post paracentesis October 08, 2023 with 2.2 L drained. Plan: Maintain fluid restriction. Encouraged oral intake, particularly protein. Maintain Aldactone and Lasix. Repeat BMP and magnesium level 2 to 3 days postdischarge. Follow-up outpatient in 1 week.
--- NOTE | 2023-10-14 15:42 | P.PN ---
Subjective Progress Note Date: 10/14/23 Hospital course: Patient is a very pleasant 67-year-old male with a past medical history of nonobstructive coronary artery disease and hyperlipidemia. He presented to the hospital on 10/06/2023 with a chief complaint of abdominal pain x 3 days accompanied by postural dizziness. Upon arrival to the hospital, patient underwent evaluation in the emergency department. Vital signs upon arrival show blood pressure 132/91, heart rate 98, respiratory rate 18, temp 98.7 F, and SpO2 of 99% on room air. EKG completed showing normal sinus rhythm at 83 bpm with no noted T wave or ST abnormalities upon personal review and interpretation. Brain was negative for acute intracranial process showing right maxillary sinus air-fluid level rule out acute right maxillary sinusitis. CT abdomen and pelvis with contrast was completed showing multiple hypodense masses scattered throughout the liver suspicious for metastatic disease with ascites through the pelvis and abdomen. Labs completed and reviewed. CBC showing leukocytosis with WBC count of 13.4 and normocytic anemia with hemoglobin of 12.3. BMP showing hyponatremia with sodium of 120, hypochloremia with chloride of 88, hypocarbia with bicarb of 20, and anion gap of 12. Blood glucose was 106. Magnesium 1.9. Liver profile showing hyperbilirubinemia with transaminitis with total bili of 3.4, AST of 101, ALT of 59, and alkaline phosphatase of 1187. Patient was admitted under our services with consultation to gastroenterology, nephrology and hematology/oncology. Hepatitis serologies negative. AFP tumor marker less than 3.00, Carcinoembryonic Ag 8.8 and CA 19/9 antigen 364.0. On 10/07/[address] chest with contrast showing multiple punctate densities which could represent moderate subcentimeter nodules concerning for metastatic process with probable hepatic and possible splenic metastasis. 10/08/2023 patient underwent ultrasound-guided paracentesis with removal of 2200 cc of clear straw-colored fluid. Pathology reports reporting ascitic fluid acute and chronic inflammatory cells with macrophages and reactive mesothelial cells with current specimen negative for diagnostic malignancy. Retreatment of hypervolemic hyponatremia patient has been maintained on fluid restriction and received 1 dose of Samsca on 10/10/2023. Physical Exam: Patient seen and examined at bedside. Sitting up in the chair at bedside, reports abdominal fullness but currently denies having any pain or complaints. Vital signs reviewed General: Nontoxic, no distress, appears at stated age Skin/Derm: Warm and dry, mild jaundice Cardiovascular: S1S2 reg, no murmur Lungs: CTA bilateral, no rhonchi, no rales, no accessory muscle use Abdominal: Distended, nontender to palpation, no guarding Ext: No gross muscle atrophy, no edema bilateral lower extremities, no contractures Neuro: CN II-XI grossly intact, no focal neuro deficits Psych: Alert, oriented, appropriate affect Assessment/Plan: Liver lesions and multiple pulmonary lesions Acute Transaminitis with hyperbilirubinemia -Oncology following, discussed plan of care with oncology MOLDING ASSOCIATE in depth and plan is for patient to undergo biopsy of liver lesion with interventional radiology tomorrow. -Pathology reports reporting ascitic fluid acute and chronic inflammatory cells with macrophages and reactive mesothelial cells with current specimen negative for diagnostic malignancy. [id number] and HSA stains were also both reported to be negative with [facility] cytology lab stating supporting a benign diagnosis. -Continue with symptomatic care and pain management with [place] 5/325 mg tablets every 4 hours as needed for mild to moderate pain and and morphine 4 mg IVP every 4 hours as needed for severe pain. -Statin on hold secondary to acute transaminitis -Hepatitis A, B, and C are negative -Elevated CEA and CA 19-9. Hypervolemic hyponatremia, resolved. -Nephrology following and reviewed documentation in chart. -Maintain fluid restriction 1500 cc daily, -Continue Aldactone 25 mg daily and Lasix 20 mg daily. -Urine sodium less than 20 with repeat at 73, urine osmolality 568 and then 492. -Neurology recommending repeat BMP 3 days status post discharge and follow-up outpatient in their office in 1 week. Insomnia -Continue melatonin 5 mg at night as needed CAD Hypertension -Continue daily medication regimen with metoprolol 100 mg daily, continue to hold rosuvastatin secondary to acute transaminitis with hyperbilirubinemia. Mild leukocytosis, felt to be reactive. Resolved. Data and Imaging Reviewed: -Pathology reports reporting ascitic fluid acute and chronic inflammatory cells with macrophages and reactive mesothelial cells with current specimen negative for diagnostic malignancy. [id number] and HSA stains were also both reported to be negative with [facility] cytology lab stating supporting a benign diagnosis.Quintin Kidd MOLDING ASSOCIATE rendered care for this patient independently, reviewed the findings and plan as documented in the note above. I did not physically speak with or examine the patient on this date. Discussed these results with oncology MOLDING ASSOCIATE, patient to undergo biopsy of liver lesion with interventional radiologist tomorrow. -Morning labs completed and reviewed. CBC showing stable normocytic anemia with hemoglobin of 10.8. Coagulation profile showing normal PT and INR with PT of 11.9 and INR 1.11. BMP was unremarkable showing resolution of hyponatremia with morning sodium of 135. Magnesium 2.0. Liver profile showing continued hyperbilirubinemia with bilirubin of 3.1, AST of 151, ALT of 101, and alkaline phosphatase of 1706. -Vital signs reviewed. Blood pressure 108/70, heart rate 82, respiratory rate 16, temp 98.3 F, and SpO2 of 96% on room air. DVT prophylaxis: SCDs and TOMY hose, Lovenox held secondary to planned liver biopsy. Anticipated discharge date: Pending clinical course, patient scheduled for biopsy of liver lesion with interventional radiology tomorrow. Anticipated discharge place: Home Patient was seen independently by Nurse Pracitioner. This document was prepared using [employer] dictation software. Please allow for errors in intensive care unit registered nurse, while rare they do occur. Quintin Kidd, ERME rendered care for this patient independently, reviewed the findings and plan as documented in the note above. I did not physically speak with or examine the patient on this date. Objective - Vital Signs Vital signs: Vital Signs Temp 98.3 F 10/14/23 06:45 Pulse 82 10/14/23 06:45 Resp 16 10/14/23 06:45 BP 108/70 10/14/23 06:45 Pulse Ox 96 10/14/23 06:45 FiO2 Intake & Output 10/13/23 10/14/23 10/14/23 18:59 06:59 18:59 Intake Total 240 Output Total 300 Balance 240 -300 Weight 53.5 kg 53.5 kg Intake: Oral 240 Output: Urine 300 Other: # Voids 1 # Bowel Movements 1 - Labs CBC & Chem 7: 10/14/23 06:39 10/14/23 06:39 Labs: Abnormal Lab Results - Last 24 Hours (Table) 10/13/23 Range/Units 03:00 Sodium 132 L (135-145) mmol/L BUN/Creatinine Ratio 27.22 H (12.00-20.00) Ratio Calcium 7.5 L (8.7-10.3) mg/dL Total Bilirubin 2.9 H (0.3-1.2) mg/dL AST 138 H (14-35) U/L ALT 90 H (10-49) U/L Alkaline Phosphatase 1509 H (41-126) U/L Total Protein 4.2 L (6.2-8.2) g/dL Albumin 2.5 L (3.8-4.9) g/dL Albumin/Globulin Ratio 1.47 L (1.60-3.17) Ratio
--- NOTE | 2023-10-14 15:43 | P.PN ---
Subjective Progress Note Date: 10/14/23 No acute events. He is resting comfortably in bedside chair. Patient denies nausea vomiting diarrhea, tolerating oral intake. Objective - Vital Signs Vital signs: Vital Signs Temp 98.3 F 10/14/23 06:45 Pulse 82 10/14/23 06:45 Resp 16 10/14/23 06:45 BP 108/70 10/14/23 06:45 Pulse Ox 96 10/14/23 06:45 FiO2 Intake & Output 10/13/23 10/14/23 10/14/23 18:59 06:59 18:59 Intake Total 240 Output Total 300 Balance 240 -300 Weight 53.5 kg 53.5 kg Intake: Oral 240 Output: Urine 300 Other: # Voids 1 # Bowel Movements 1 - Constitutional General appearance: Present: no acute distress, thin - EENT Eyes: Present: EOMI ENT: Present: hearing grossly normal - Respiratory Details: breathing is even and unlabored - Cardiovascular Details: well perfused - Gastrointestinal General gastrointestinal: Present: distended. Absent: tenderness - Integumentary Integumentary: Absent: cyanotic - Neurologic Neurologic Comment(s): grossly intact - Musculoskeletal Musculoskeletal: Present: strength equal bilaterally - Psychiatric Psychiatric: Present: A&O x's 3 - Labs CBC & Chem 7: 10/14/23 06:39 10/14/23 06:39 Labs: Abnormal Lab Results - Last 24 Hours (Table) 10/14/23 10/14/23 Range/Units 06:39 06:39 RBC 3.98 L (4.40-5.60) X 10*6/uL Hgb 10.8 L (13.0-17.0) g/dL Hct 33.6 L (39.6-50.0) % RDW 14.9 H (11.5-14.5) % BUN/Creatinine Ratio 28.89 H (12.00-20.00) Ratio Calcium 7.8 L (8.7-10.3) mg/dL Total Bilirubin 3.1 H (0.3-1.2) mg/dL AST 151 H (14-35) U/L ALT 101 H (10-49) U/L Alkaline Phosphatase 1706 H (41-126) U/L Total Protein 4.4 L (6.2-8.2) g/dL Albumin 2.7 L (3.8-4.9) g/dL Albumin/Globulin Ratio 1.59 L (1.60-3.17) Ratio Assessment and Plan (1) Abdominal pain Current Visit: Yes Status: Acute Priority: High Code(s): R10.9 - UNSPECIFIED ABDOMINAL PAIN SNOMED Code(s): 42737122 (2) Elevated LFTs Current Visit: Yes Status: Acute Priority: High Code(s): R79.89 - OTHER SPECIFIED ABNORMAL FINDINGS OF BLOOD CHEMISTRY SNOMED Code(s): 998491067 (3) Liver lesion Current Visit: Yes Status: Acute Priority: High Code(s): K76.9 - LIVER DISEASE, UNSPECIFIED SNOMED Code(s): 014572159 (4) Lung nodules Current Visit: Yes Status: Acute Priority: Medium Code(s): R91.8 - OTHER NONSPECIFIC ABNORMAL FINDING OF LUNG FIELD SNOMED Code(s): 150574873 Plan: Liver lesions, ascites -Concerning findings on CT of the abdomen and pelvis, liver lesions, ascites. -CT chest reports several subcentimeter pulm noduels, no LAD or large lesions reported -S/P paracentesis, 2200cc removed. Non-diagnostic, no malignancy in specimen. -Concerning that despite neg results that there is an underlying malignancy. Will consult interventional radiology for liver biopsy, pt agreeable to the same -Pain managed at this time by IM. Pain is controlled on current regimen Spoke with radiology dept, will plan for liver biopsy tomorrow, 10/14. Lovenox has been held Discussed case and POC with admitting team
--- NOTE | 2023-10-15 11:44 | P.PN ---
Subjective Patient is seen in follow-up for hyponatremia. Sodium level 135 yesterday. Has been voiding. Oral intake fair. No vomiting or diarrhea. No active complaints. Vital signs are stable. General: No acute distress. HEENT: Head exam is unremarkable. LUNGS: No audible rhonchi or wheezes. HEART: Rate and Rhythm are regular. ABDOMEN: Nontender. EXTREMITITES: Trace edema. Objective - Vital Signs Vital signs: Vital Signs Temp 97.7 F 10/15/23 06:49 Pulse 79 10/15/23 10:32 Resp 16 10/15/23 10:32 BP 122/77 10/15/23 10:32 Pulse Ox 95 10/15/23 10:32 FiO2 Intake & Output 10/14/23 10/15/23 10/15/23 18:59 06:59 18:59 Intake Total 838 Balance 838 Weight 53.5 kg 56.2 kg Intake: Oral 838 Other: Voiding Method Toilet Toilet # Voids 10 2 - Labs CBC & Chem 7: 10/14/23 06:39 10/14/23 06:39 Assessment and Plan Plan: Assessment: 1. Hyponatremia, slightly hypervolemic. Sodium level 135 yesterday. Urine sodium less than 20 and repeat 73. Urine osmolality initially 568 and 294 on repeat. TSH normal. 2. Liver lesions. Concern for malignancy. Oncology following. Liver biopsy pending. 3. Ascites status post paracentesis October 08, 2023 with 2.2 L drained. Plan: Maintain fluid restriction. Encouraged oral intake, particularly protein. Maintain Aldactone and Lasix. Repeat BMP and magnesium level 2 to 3 days postdischarge. Follow-up outpatient in 1 week.
--- NOTE | 2023-10-15 14:24 | US ---
EXAMINATION TYPE: US biopsy liver DATE OF EXAM: 10/15/2023 11:59 AM CLINICAL INDICATION: Male, 67 years old referred for percutaneous biopsy in the setting of multiple liver masses. ATTENDING: Dr. Obrien TECHNIQUE: Ultrasound guided percutaneous biopsy of using coaxial method. The patient was monitored by a qualifi ed trained nurse independent of the Radiologist during sedation. FINDINGS: The procedure was explained to the patient. All questions were answered and informed consent was obta ined. The patient was placed supine and transverse ultrasound images of the anterior left liver lobe were o btained. The overlying skin was marked and prepped using sterile method. Timeout was taken per protocol. Follo wing administration 1% local lidocaine anesthesia, a 17/18 gauge NuMedii biopsy system was advanced wit h needle tip visualized within a 1.9 cm anterior left liver lobe mass. Two 18-gauge core biopsies were obtained, placed in formalin solution, and sent to pathology. The needle was removed. Additional ultrasound scanning shows no abnormal fluid collection or evident complication. Hemostasis was obtained and a dressing was placed. There is underlying mild perihepatic ascites noted. Patient was taken for postprocedure observation in stable condition. IMPRESSIONS: Status post ultrasound guided liver lesion biopsy. A 1.9 cm mass in the anterior left liver lobe was targeted. Pathology results pending.
--- NOTE | 2023-10-15 17:16 | P.PN ---
Subjective Progress Note Date: 10/15/23 Hospital course: Patient is a very pleasant 67-year-old male with a past medical history of nonobstructive coronary artery disease and hyperlipidemia. He presented to the hospital on 10/06/2023 with a chief complaint of abdominal pain x 3 days accompanied by postural dizziness. Upon arrival to the hospital, patient underwent evaluation in the emergency department. Vital signs upon arrival show blood pressure 132/91, heart rate 98, respiratory rate 18, temp 98.7 F, and SpO2 of 99% on room air. EKG completed showing normal sinus rhythm at 83 bpm with no noted T wave or ST abnormalities upon personal review and interpretation. Brain was negative for acute intracranial process showing right maxillary sinus air-fluid level rule out acute right maxillary sinusitis. CT abdomen and pelvis with contrast was completed showing multiple hypodense masses scattered throughout the liver suspicious for metastatic disease with ascites through the pelvis and abdomen. Labs completed and reviewed. CBC showing leukocytosis with WBC count of 13.4 and normocytic anemia with hemoglobin of 12.3. BMP showing hyponatremia with sodium of 120, hypochloremia with chloride of 88, hypocarbia with bicarb of 20, and anion gap of 12. Blood glucose was 106. Magnesium 1.9. Liver profile showing hyperbilirubinemia with transaminitis with total bili of 3.4, AST of 101, ALT of 59, and alkaline phosphatase of 1187. Patient was admitted under our services with consultation to gastroenterology, nephrology and hematology/oncology. Hepatitis serologies negative. AFP tumor marker less than 3.00, Carcinoembryonic Ag 8.8 and CA 19/9 antigen 364.0. On 10/07/[address] chest with contrast showing multiple punctate densities which could represent moderate subcentimeter nodules concerning for metastatic process with probable hepatic and possible splenic metastasis. 10/08/2023 patient underwent ultrasound-guided paracentesis with removal of 2200 cc of clear straw-colored fluid. Pathology reports reporting ascitic fluid acute and chronic inflammatory cells with macrophages and reactive mesothelial cells with current specimen negative for diagnostic malignancy. Retreatment of hypervolemic hyponatremia patient has been maintained on fluid restriction and received 1 dose of Samsca on 10/10/2023. Patient underwent liver lesion biopsy on 10/15/2023. Physical Exam: Patient seen and examined at bedside upon returning from liver lesion biopsy. He currently reports just feeling "exhausted". He reports mild pain from procedure and right upper quadrant/rib region otherwise denies having any further complaints or concerns at this time. Vital signs reviewed General: Nontoxic, no distress, appears at stated age Skin/Derm: Warm and dry, mild jaundice Cardiovascular: S1S2 reg, no murmur Lungs: CTA bilateral, no rhonchi, no rales, no accessory muscle use Abdominal: Distended, nontender to palpation, no guarding Ext: No gross muscle atrophy, no edema bilateral lower extremities, no contractures Neuro: CN II-XI grossly intact, no focal neuro deficits Psych: Alert, oriented, appropriate affect Assessment/Plan: Liver lesions and multiple pulmonary lesions Acute Transaminitis with hyperbilirubinemia -Oncology following, discussed plan of care with oncology [facility]. -Patient underwent biopsy of liver lesion with interventional radiology this morning. -Pathology reports from paracentesis reporting ascitic fluid acute and chronic inflammatory cells with macrophages and reactive mesothelial cells with current specimen negative for diagnostic malignancy. M0CD31 and HSA stains were also both reported to be negative with [facility] cytology lab stating supporting a benign diagnosis. -Continue with symptomatic care and pain management with [place] 5/325 mg tablets every 4 hours as needed for mild to moderate pain and and morphine 4 mg IVP every 4 hours as needed for severe pain. -Statin on hold secondary to acute transaminitis -Hepatitis A, B, and C are negative -Elevated CEA and CA 19-9. Hypervolemic hyponatremia, resolved. -Nephrology following and reviewed documentation in chart. Regulatory Attorney recommending repeat BMP 3 days status post discharge and follow-up outpatient in their office in 1 week. -Maintain fluid restriction 1500 cc daily, -Continue Aldactone 25 mg daily and Lasix 20 mg daily. -Urine sodium less than 20 with repeat at 73, urine osmolality 568 and then 492. Insomnia -Continue melatonin 5 mg at night as needed CAD Hypertension -Continue daily medication regimen with metoprolol 100 mg daily, continue to hold rosuvastatin secondary to acute transaminitis with hyperbilirubinemia. Mild leukocytosis, felt to be reactive. Resolved. Data and Imaging Reviewed: -Labs reviewed. CBC showing stable normocytic anemia with hemoglobin of 10.8. Coagulation profile showing normal PT and INR with PT of 11.9 and INR 1.11. BMP was unremarkable showing resolution of hyponatremia with morning sodium of 135. Magnesium 2.0. Liver profile showing continued hyperbilirubinemia with bilirubin of 3.1, AST of 151, ALT of 101, and alkaline phosphatase of 1706. -Vital signs reviewed. Blood pressure 109/61, heart rate 79, respiratory rate 16, temp 98.0 F, and SpO2 of 96% on room air. DVT prophylaxis: SCDs and TOMY hoselizabeth, Lovenox held secondary to liver biopsy. Anticipated discharge date: Pending clinical course Anticipated discharge place: Home Patient was seen independently by Nurse Pracitioner. This document was prepared using [employer] dictation software. Please allow for errors in health outcomes liaison, while rare they do occur. Quintin Kidd NP rendered care for this patient independently, reviewed the findings and plan as documented in the note above. I did not physically speak with or examine the patient on this date. Objective - Vital Signs Vital signs: Vital Signs Temp 97.7 F 10/15/23 06:49 Pulse 77 10/15/23 06:49 Resp 15 10/15/23 06:49 BP 109/72 10/15/23 06:49 Pulse Ox 97 10/15/23 06:49 FiO2 Intake & Output 10/14/23 10/15/23 10/15/23 18:59 06:59 18:59 Intake Total 838 Balance 838 Weight 53.5 kg 56.2 kg Intake: Oral 838 Other: Voiding Method Toilet # Voids 10 2 - Labs CBC & Chem 7: 10/14/23 06:39 10/14/23 06:39 Labs: Abnormal Lab Results - Last 24 Hours (Table) 10/14/23 10/14/23 Range/Units 06:39 06:39 RBC 3.98 L (4.40-5.60) X 10*6/uL Hgb 10.8 L (13.0-17.0) g/dL Hct 33.6 L (39.6-50.0) % RDW 14.9 H (11.5-14.5) % BUN/Creatinine Ratio 28.89 H (12.00-20.00) Ratio Calcium 7.8 L (8.7-10.3) mg/dL Total Bilirubin 3.1 H (0.3-1.2) mg/dL AST 151 H (14-35) U/L ALT 101 H (10-49) U/L Alkaline Phosphatase 1706 H (41-126) U/L Total Protein 4.4 L (6.2-8.2) g/dL Albumin 2.7 L (3.8-4.9) g/dL Albumin/Globulin Ratio 1.59 L (1.60-3.17) Ratio
[2023-10-15] MEDS: ALBUMIN HUMAN 25% 50 ML in EMPTY BAG 1 BAG IVPB SCH (17:27)
[2023-10-16 07:43] VITALS: RESP 16
[2023-10-16 08:38] LABS: HCT 29.7 % (39.6-50.0); HGB 9.4 g/dL (13.0-17.0); MCH 26.6 pg (27.0-32.0); MCHC 31.6 g/dL (32.0-37.0); MCV 84.1 FL (80.0-97.0); Mean Platelet Volume 9.9 FL (9.5-12.2); NRBC Per 100 WBC 0 X 10*3/uL (0.00-0.01); Platelet Count 150 X 10*3/uL (140-440); RBC 3.53 X 10*6/uL (4.40-5.60); RDW 15.8 % (11.5-14.5); WBC 9.15 X 10*3/uL (4.50-10.00)
[2023-10-16 08:57] LABS: Magnesium 2.1 mg/dL (1.5-2.4)
[2023-10-16 09:18] LABS: ALT 99 U/L (10-49); AST 137 U/L (14-35); Albumin 2.5 g/dL (3.8-4.9); Albumin/Globulin Ratio 1.47 Ratio (1.60-3.17); Alkaline Phosphatase 1752 U/L (41-126); Blood Urea Nitrogen 29.1 mg/dL (9.0-27.0); Calcium 7.8 mg/dL (8.7-10.3); Carbon Dioxide 26.6 mmol/L (21.6-31.8); Chloride 100 mmol/L (96-109); Globulin 1.7 g/dL (1.6-3.3); Glucose 96 mg/dL (70-110); Potassium 4.6 mmol/L (3.5-5.5); Sodium 135 mmol/L (135-145); Total Bilirubin 3.3 mg/dL (0.3-1.2); Total Protein 4.2 g/dL (6.2-8.2)
[2023-10-16] MEDS: droNABinol 2.5 MG CAP PO SCH (11:50)
--- NOTE | 2023-10-16 12:14 | P.PN ---
Subjective Patient is seen in follow-up for hyponatremia. Sodium level 138. Has been voiding. Oral intake fair. No vomiting or diarrhea. No active complaints. Vital signs are stable. General: No acute distress. HEENT: Head exam is unremarkable. LUNGS: No audible rhonchi or wheezes. HEART: Rate and Rhythm are regular. ABDOMEN: Nontender. EXTREMITITES: 1+ edema. Objective - Vital Signs Vital signs: Vital Signs Temp 98 F 10/16/23 07:24 Pulse 70 10/16/23 07:24 Resp 16 10/16/23 07:24 BP 102/65 10/16/23 07:24 Pulse Ox 97 10/16/23 07:24 FiO2 Intake & Output 10/15/23 10/16/23 10/16/23 18:59 06:59 18:59 Intake Total 904 480 236 Balance 904 480 236 Weight 55.7 kg Intake: Oral 904 480 236 Other: Voiding Method Toilet Toilet Toilet # Voids 2 3 - Labs CBC & Chem 7: 10/16/23 05:50 10/16/23 05:50 Labs: Abnormal Lab Results - Last 24 Hours (Table) 10/16/23 10/16/23 Range/Units 05:50 05:50 RBC 3.53 L (4.40-5.60) X 10*6/uL Hgb 9.4 L (13.0-17.0) g/dL Hct 29.7 L (39.6-50.0) % MCH 26.6 L (27.0-32.0) pg MCHC 31.6 L (32.0-37.0) g/dL RDW 15.8 H (11.5-14.5) % BUN 29.1 H (9.0-27.0) mg/dL BUN/Creatinine Ratio 29.10 H (12.00-20.00) Ratio Calcium 7.8 L (8.7-10.3) mg/dL Total Bilirubin 3.3 H (0.3-1.2) mg/dL AST 137 H (14-35) U/L ALT 99 H (10-49) U/L Alkaline Phosphatase 1752 H (41-126) U/L Total Protein 4.2 L (6.2-8.2) g/dL Albumin 2.5 L (3.8-4.9) g/dL Albumin/Globulin Ratio 1.47 L (1.60-3.17) Ratio Assessment and Plan Plan: Assessment: 1. Hyponatremia, slightly hypervolemic. Sodium level 135 today. Urine sodium less than 20 and repeat 73. Urine osmolality initially 568 and 294 on repeat. TSH normal. 2. Liver lesions. Concern for malignancy. Oncology following. Liver biopsy pending. 3. Ascites status post paracentesis October 08, 2023 with 2.2 L drained. 4. Volume overload. Plan: Maintain fluid restriction. Encouraged oral intake, particularly protein. Maintain Lasix. Increase Aldactone frequency to twice daily. Repeat BMP and magnesium level 2 to 3 days postdischarge. Follow-up outpatient in 1 week.
--- NOTE | 2023-10-16 13:51 | P.PN ---
Subjective Progress Note Date: 10/16/23 No acute events. He is resting comfortably in bedside chair. Patient denies nausea vomiting diarrhea, tolerating oral intake, but does report upper abd discomfort after eating. S/p liver biopsy yesterday, tolerated procedure well Objective - Vital Signs Vital signs: Vital Signs Temp 97.5 F L 10/16/23 11:46 Pulse 76 10/16/23 11:46 Resp 16 10/16/23 11:46 BP 130/85 10/16/23 11:46 Pulse Ox 100 10/16/23 11:46 FiO2 Intake & Output 10/15/23 10/16/23 10/16/23 18:59 06:59 18:59 Intake Total 904 480 236 Balance 904 480 236 Weight 55.7 kg Intake: Oral 904 480 236 Other: Voiding Method Toilet Toilet Toilet # Voids 2 3 - Constitutional General appearance: Present: no acute distress, thin - EENT Eyes: Present: EOMI ENT: Present: hearing grossly normal - Respiratory Details: breathing is even and unlabored - Gastrointestinal Gastrointestinal Comment(s): upper abd tenderness, no guarding General gastrointestinal: Present: distended, tenderness - Integumentary Integumentary: Absent: cyanotic - Psychiatric Psychiatric: Present: A&O x's 3 - Labs CBC & Chem 7: 10/16/23 05:50 10/16/23 05:50 Labs: Abnormal Lab Results - Last 24 Hours (Table) 10/16/23 10/16/23 Range/Units 05:50 05:50 RBC 3.53 L (4.40-5.60) X 10*6/uL Hgb 9.4 L (13.0-17.0) g/dL Hct 29.7 L (39.6-50.0) % MCH 26.6 L (27.0-32.0) pg MCHC 31.6 L (32.0-37.0) g/dL RDW 15.8 H (11.5-14.5) % BUN 29.1 H (9.0-27.0) mg/dL BUN/Creatinine Ratio 29.10 H (12.00-20.00) Ratio Calcium 7.8 L (8.7-10.3) mg/dL Total Bilirubin 3.3 H (0.3-1.2) mg/dL AST 137 H (14-35) U/L ALT 99 H (10-49) U/L Alkaline Phosphatase 1752 H (41-126) U/L Total Protein 4.2 L (6.2-8.2) g/dL Albumin 2.5 L (3.8-4.9) g/dL Albumin/Globulin Ratio 1.47 L (1.60-3.17) Ratio Assessment and Plan (1) Abdominal pain Current Visit: Yes Status: Acute Priority: High Code(s): R10.9 - UNSPECIFIED ABDOMINAL PAIN SNOMED Code(s): 88098107 (2) Elevated LFTs Current Visit: Yes Status: Acute Priority: High Code(s): R79.89 - OTHER SPECIFIED ABNORMAL FINDINGS OF BLOOD CHEMISTRY SNOMED Code(s): 326359851 (3) Liver lesion Current Visit: Yes Status: Acute Priority: High Code(s): K76.9 - LIVER DISEASE, UNSPECIFIED SNOMED Code(s): 021026805 (4) Lung nodules Current Visit: Yes Status: Acute Priority: Medium Code(s): R91.8 - OTHER NONSPECIFIC ABNORMAL FINDING OF LUNG FIELD SNOMED Code(s): 845208672 Plan: Liver lesions, ascites -Concerning findings on CT abdomen and pelvis, liver lesions, ascites. Elevated LFTs, bilirubin -CT chest reports several subcentimeter pulm noduels, no LAD or large lesions reported -S/P paracentesis, 2200cc removed. Non-diagnostic, no malignancy in specimen. -Concerning that despite neg results that there is an underlying malignancy. IR consulted for liver biopsy -S/p liver biopsy, pathology pending. Discussed with patient results typically take 3-5 days to result. -Pain managed at this time by IM. Pain has been controlled on current regimen
--- NOTE | 2023-10-16 17:49 | P.PN ---
Subjective Progress Note Date: 10/16/23 Hospital course: Patient is a very pleasant 67-year-old male with a past medical history of nonobstructive coronary artery disease and hyperlipidemia. He presented to the hospital on 10/06/2023 with a chief complaint of abdominal pain x 3 days accompanied by postural dizziness. Upon arrival to the hospital, patient underwent evaluation in the emergency department. Vital signs upon arrival show blood pressure 132/91, heart rate 98, respiratory rate 18, temp 98.7 F, and SpO2 of 99% on room air. EKG completed showing normal sinus rhythm at 83 bpm with no noted T wave or ST abnormalities upon personal review and interpretation. Brain was negative for acute intracranial process showing right maxillary sinus air-fluid level rule out acute right maxillary sinusitis. CT abdomen and pelvis with contrast was completed showing multiple hypodense masses scattered throughout the liver suspicious for metastatic disease with ascites through the pelvis and abdomen. Labs completed and reviewed. CBC showing leukocytosis with WBC count of 13.4 and normocytic anemia with hemoglobin of 12.3. BMP showing hyponatremia with sodium of 120, hypochloremia with chloride of 88, hypocarbia with bicarb of 20, and anion gap of 12. Blood glucose was 106. Magnesium 1.9. Liver profile showing hyperbilirubinemia with transaminitis with total bili of 3.4, AST of 101, ALT of 59, and alkaline phosphatase of 1187. Patient was admitted under our services with consultation to gastroenterology, nephrology and hematology/oncology. Hepatitis serologies negative. AFP tumor marker less than 3.00, Carcinoembryonic Ag 8.8 and CA 19/9 antigen 364.0. On 10/07/[address] chest with contrast showing multiple punctate densities which could represent moderate subcentimeter nodules concerning for metastatic process with probable hepatic and possible splenic metastasis. 10/08/2023 patient underwent ultrasound-guided paracentesis with removal of 2200 cc of clear straw-colored fluid. Pathology reports reporting ascitic fluid acute and chronic inflammatory cells with macrophages and reactive mesothelial cells with current specimen negative for diagnostic malignancy. Retreatment of hypervolemic hyponatremia patient has been maintained on fluid restriction and received 1 dose of Samsca on 10/10/2023. Patient underwent liver lesion biopsy on 10/15/2023. Physical Exam: Patient seen and examined at bedside morning. Patient reports moderate pain to right rib region status post liver lesion biopsy completed yesterday. Vital signs reviewed General: Nontoxic, no distress, appears at stated age Skin/Derm: Warm and dry, mild jaundice Cardiovascular: S1S2 reg, no murmur Lungs: CTA bilateral, no rhonchi, no rales, no accessory muscle use Abdominal: Distended, nontender to palpation, no guarding Ext: No gross muscle atrophy, no edema bilateral lower extremities, no contractures Neuro: CN II-XI grossly intact, no focal neuro deficits Psych: Alert, oriented, appropriate affect Assessment/Plan: Liver lesions and multiple pulmonary lesions Acute Transaminitis with hyperbilirubinemia Severe protein calorie malnutrition -Oncology following, discussed plan of care with oncology MIX TECHNICIAN. -Patient underwent biopsy of liver lesion with interventional radiology on 10/15/2023, awaiting pathology reports. -Pathology reports from paracentesis reporting ascitic fluid acute and chronic inflammatory cells with macrophages and reactive mesothelial cells with current specimen negative for diagnostic malignancy. [id number] and HSA stains were also both reported to be negative with [facility] cytology lab stating supporting a benign diagnosis. -Continue with symptomatic care and pain management with [place] 5/325 mg tablets every 4 hours as needed for mild to moderate pain and and morphine 4 mg IVP every 4 hours as needed for severe pain. -Statin on hold secondary to acute transaminitis -Hepatitis A, B, and C are negative -Elevated CEA and CA 19-9. -Patient encouraged to consume protein drinks 3 times daily between meals and was started on Marinol 2.5 mg twice daily and attempts to increase appetite. Hypervolemic hyponatremia, resolved. -Nephrology following and reviewed documentation in chart. Audiovisual Librarian increased Aldactone this morning to 25 mg twice daily and recommending repeat BMP 3 days status post discharge and follow-up outpatient in their office in 1 week. -Maintain fluid restriction 1500 cc daily, -Continue Aldactone 25 mg daily and Lasix 20 mg daily. -Urine sodium less than 20 with repeat at 73, urine osmolality 568 and then 492. Insomnia -Continue melatonin 5 mg at night as needed CAD Hypertension -Continue daily medication regimen with metoprolol 100 mg daily, continue to hold rosuvastatin secondary to acute transaminitis with hyperbilirubinemia. Mild leukocytosis, felt to be reactive. Resolved. Data and Imaging Reviewed: -Labs reviewed. CBC showing stable normocytic anemia with hemoglobin of 9.4. BMP showing mild prerenal azotemia with BUN of 29.1 otherwise normal findings. Magnesium 2.1. Liver profile showing total bili of 3.3, AST of 137, ALT of 99, and alkaline phosphatase of 1752. -Vital signs reviewed. Blood pressure 102/65, heart rate 70, respiratory rate 16, temp 98.0 F, and SpO2 of 97% on room air. DVT prophylaxis: SCDs and TOMY hose, Lovenox held secondary to liver biopsy. Anticipated discharge date: Likely tomorrow morning. Anticipated discharge place: Home Patient was seen independently by Nurse Pracitioner. This document was prepared using [employer] dictation software. Please allow for errors in sheet metal worker supervisor, while rare they do occur. Quintin Kidd NP rendered care for this patient independently, reviewed the findings and plan as documented in the note above. I did not physically speak with or examine the patient on this date. Objective - Vital Signs Vital signs: Vital Signs Temp 98 F 10/16/23 07:24 Pulse 70 10/16/23 07:24 Resp 16 10/16/23 07:24 BP 102/65 10/16/23 07:24 Pulse Ox 97 10/16/23 07:24 FiO2 Intake & Output 10/15/23 10/16/23 10/16/23 18:59 06:59 18:59 Intake Total 904 480 Balance 904 480 Weight 55.7 kg Intake: Oral 904 480 Other: Voiding Method Toilet Toilet # Voids 2 3 - Labs CBC & Chem 7: 10/16/23 05:50 10/16/23 05:50 Labs: Abnormal Lab Results - Last 24 Hours (Table) 10/16/23 Range/Units 05:50 RBC 3.53 L (4.40-5.60) X 10*6/uL Hgb 9.4 L (13.0-17.0) g/dL Hct 29.7 L (39.6-50.0) % MCH 26.6 L (27.0-32.0) pg MCHC 31.6 L (32.0-37.0) g/dL RDW 15.8 H (11.5-14.5) %
[2023-10-16] MEDS: SPIRONOLACTONE 25 MG TAB PO SCH (21:06)
[2023-10-17 07:42] VITALS: BP 120/66; PULSE 97; TEMP 98.4
--- NOTE | 2023-10-17 09:38 | P.DS ---
Providers Date of admission: 10/06/23 20:48 Expected date of discharge: 10/17/23 Attending physician: Jung Mancia MD Consults: 10/06/23 20:46 Consult Physician Routine Consulting Provider: Fabi Salazar Consult Reason/Comments: hyponatremia Do you want consulting provider notified?: Yes 10/06/23 23:10 Consult Physician Routine Consulting Provider: Uriah Gilliland Consult Reason/Comments: liver lesions Do you want consulting provider notified?: Yes Primary care physician: [place] Hospital Course: Discharge Diagnosis: Liver lesions and multiple pulmonary lesions. Patient underwent liver lesion biopsy on 10/15/23 and a follow-up outpatient with hematology/oncology on 10/21/23 to review biopsy results and discuss plan of care. Acute Transaminitis with hyperbilirubinemia Severe protein calorie malnutrition. Patient encouraged to consume protein drinks 3 times daily between meals and was started on Marinol 2.5 mg twice daily and attempts to increase appetite. Hypervolemic hyponatremia, resolved. Nursing Program Coordinator increased Aldactone this morning to 25 mg twice daily and pt encouraged to Maintain fluid restriction 1500 cc daily, Insomnia. Continue melatonin 5 mg at night as needed CAD. Continue daily medication regimen with metoprolol 100 mg daily, discontinued rosuvastatin secondary to acute transaminitis with hyperbilirubinemia. Hypertension. Continue daily medication regimen with metoprolol 100 mg daily. Mild leukocytosis, felt to be reactive. Resolved. Hospital course: Patient is a very pleasant 67-year-old male with a past medical history of nonobstructive coronary artery disease and hyperlipidemia. He presented to the hospital on 10/06/2023 with a chief complaint of abdominal pain x 3 days accompanied by postural dizziness. Upon arrival to the hospital, patient underwent evaluation in the emergency department. Vital signs upon arrival show blood pressure 132/91, heart rate 98, respiratory rate 18, temp 98.7 F, and SpO2 of 99% on room air. EKG completed showing normal sinus rhythm at 83 bpm with no noted T wave or ST abnormalities upon personal review and interpretation. Brain was negative for acute intracranial process showing right maxillary sinus air-fluid level rule out acute right maxillary sinusitis. CT abdomen and pelvis with contrast was completed showing multiple hypodense masses scattered throughout the liver suspicious for metastatic disease with ascites through the pelvis and abdomen. Labs completed and reviewed. CBC showing leukocytosis with WBC count of 13.4 and normocytic anemia with hemoglobin of 12.3. BMP showing hyponatremia with sodium of 120, hypochloremia with chloride of 88, hypocarbia with bicarb of 20, and anion gap of 12. Blood glucose was 106. Magnesium 1.9. Liver profile showing hyperbilirubinemia with t ransaminitis with total bili of 3.4, AST of 101, ALT of 59, and alkaline phosphatase of 1187. Patient was admitted under our services with consultation to gastroenterology, nephrology and hematology/oncology. Hepatitis serologies negative. AFP tumor marker less than 3.00, Carcinoembryonic Ag 8.8 and CA 19/9 antigen 364.0. On 10/07/[address] chest with contrast showing multiple punctate densities which could represent moderate subcentimeter nodules concerning for metastatic process with probable hepatic and possible splenic metastasis. 10/08/2023 patient underwent ultrasound-guided paracentesis with removal of 2200 cc of clear straw-colored fluid. Pathology reports reporting ascitic fluid acute and chronic inflammatory cells with macrophages and reactive mesothelial cells with current specimen negative for diagnostic malignancy. Retreatment of hypervolemic hyponatremia patient has been maintained on fluid restriction and received 1 dose of Samsca on 10/10/2023. Patient underwent liver lesion biopsy on 10/15/2023. Physical Exam: Vital signs reviewed General: Nontoxic, no distress, appears at stated age Skin/Derm: Warm and dry, mild jaundice Cardiovascular: S1S2 reg, no murmur Lungs: CTA bilateral, no rhonchi, no rales, no accessory muscle use Abdominal: Distended, nontender to palpation, no guarding Ext: No gross muscle atrophy, no edema bilateral lower extremities, no contractures Neuro: CN II-XI grossly intact, no focal neuro deficits Psych: Alert, oriented, appropriate affect A total of 37 minutes of time were spent preparing this complex discharge summary. Pt was discharged on 10/17/23 at 9:37 AM. Patient was seen independently by Nurse Practitioner. This document was prepared using [employer] dictation software. Please allow for errors in photography intern while rare they do occur. Quintin Kidd NP rendered care for this patient independently, reviewed the findings and plan as documented in the note above. I did not physically speak with or examine the patient on this date. Patient Condition at Discharge: Stable Plan - Discharge Summary Discharge Rx Participant: Yes New Discharge Prescriptions: New Melatonin 5 mg PO HS PRN 30 Days #30 tab PRN Reason: Insomnia Spironolactone [Aldactone] 25 mg PO BID 30 Days #60 tab Furosemide [Lasix] 20 mg PO DAILY 30 Days #30 tab droNABinol [Marinol] 2.5 mg PO AC-BID 30 Days #60 cap HYDROcodone/APAP 5-325MG [[place] 5-325] 1 each PO Q4HR PRN #18 tab PRN Reason: Pain Continue Vitamin C(Unknown Dose) 1 tab PO DAILY Meloxicam [Mobic] 15 mg PO DAILY PRN PRN Reason: Pain Metoprolol Succinate (ER) [Toprol XL] 100 mg PO DAILY Fish Oil(Unknown Dose) 1 cap PO DAILY Vitamin D3(Unknown Dose) 1 tab PO DAILY Aspirin EC [Ecotrin] 325 mg PO DAILY Discontinued Rosuvastatin [Crestor] 10 mg PO HS Zolpidem [Ambien] 10 mg PO HS PRN PRN Reason: Insomnia Discharge Medication List Aspirin EC [Ecotrin] 325 mg PO DAILY 10/06/23 [History] Fish Oil(Unknown Dose) 1 cap PO DAILY 10/06/23 [History] Meloxicam [Mobic] 15 mg PO DAILY PRN 10/06/23 [History] Metoprolol Succinate (ER) [Toprol XL] 100 mg PO DAILY 10/06/23 [History] Vitamin C(Unknown Dose) 1 tab PO DAILY 10/06/23 [History] Vitamin D3(Unknown Dose) 1 tab PO DAILY 10/06/23 [History] Furosemide [Lasix] 20 mg PO DAILY 30 Days #30 tab 10/17/23 [Rx] HYDROcodone/APAP 5-325MG [[place] 5-325] 1 each PO Q4HR PRN #18 tab 10/17/23 [Rx] Melatonin 5 mg PO HS PRN 30 Days #30 tab 10/17/23 [Rx] Spironolactone [Aldactone] 25 mg PO BID 30 Days #60 tab 10/17/23 [Rx] droNABinol [Marinol] 2.5 mg PO AC-BID 30 Days #60 cap 10/17/23 [Rx] Follow up Appointment(s)/Referral(s): Marshal Back MD [STAFF PHYSICIAN] - 10/21/23 9:30 am () Vielka Monroy MD [STAFF PHYSICIAN] - 1 Week (please call the office to schedule a follow up appointment.) Arlet Pacheco MD [Primary Care Provider] - 10/28/23 9:30 am Discharge Disposition: HOME SELF-CARE
[2023-10-17] MEDS ORDERED: DICYCLOMINE 10 MG/ML 2 ML AMP IM STA (10:03)
[2023-10-17] MEDS ORDERED: KETOROLAC 15 MG/ML 1 ML VIAL IVP STA (10:04)
--- NOTE | 2023-10-17 11:38 | P.PN ---
Subjective Patient is seen in follow-up for hyponatremia. Sodium level 135. Has been voiding. Oral intake fair. No vomiting or diarrhea. No active complaints. Vital signs are stable. General: No acute distress. HEENT: Head exam is unremarkable. LUNGS: No audible rhonchi or wheezes. HEART: Rate and Rhythm are regular. ABDOMEN: Nontender. EXTREMITITES: 1+ edema. Objective - Vital Signs Vital signs: Vital Signs Temp 98.4 F 10/17/23 07:17 Pulse 97 10/17/23 07:17 Resp 16 10/17/23 07:17 BP 120/66 10/17/23 07:17 Pulse Ox 96 10/17/23 07:17 FiO2 Intake & Output 10/16/23 10/17/23 10/17/23 18:59 06:59 18:59 Intake Total 476 240 Balance 476 240 Weight 35.8 kg Intake: Oral 476 240 Other: Voiding Method Toilet Toilet - Labs CBC & Chem 7: 10/16/23 05:50 10/16/23 05:50 Assessment and Plan Plan: Assessment: 1. Hyponatremia, slightly hypervolemic. Sodium level stable at 135 today. Urine sodium less than 20 and repeat 73. Urine osmolality initially 568 and 294 on repeat. TSH normal. 2. Liver lesions. Concern for malignancy. Oncology following. Liver biopsy pending. 3. Ascites status post paracentesis October 08, 2023 with 2.2 L drained. 4. Volume overload. improving with diuresis. Plan: Maintain fluid restriction. Encouraged oral intake, particularly protein. Maintain Lasix. maintain Aldactone. Repeat BMP and magnesium level 2 to 3 days postdischarge. Follow-up outpatient in 1 week.
[2023-10-17 12:31] VITALS: BMI 12.3
== END 2023-10-17 12:07 | disposition home or self-care (01) | DRG 435 ==
LOC: EC 16:41 → 5NMEDONC 20:48
PROVIDERS: ADMIT Internal Medicine; ATTEND Internal Medicine
PROC: 0W9G3ZX Drainage of Peritoneal Cavity, Percutaneous Approach, Diagnostic (ICD-10-PCS; 2023-10-08)
PROC: 0FB03ZX Excision of Liver, Percutaneous Approach, Diagnostic (ICD-10-PCS; principal; 2023-10-16)
DX: C22.9 Malignant neoplasm of liver, not specified as primary or secondary (principal); E43 Unspecified severe protein-calorie malnutrition; Z68.1 Body mass index [BMI] 19.9 or less, adult; R18.8 Other ascites; R64 Cachexia; E87.1 Hypo-osmolality and hyponatremia; R74.01 Elevation of levels of liver transaminase levels; E80.6 Other disorders of bilirubin metabolism; R91.1 Solitary pulmonary nodule; D64.9 Anemia, unspecified; E86.1 Hypovolemia; E78.5 Hyperlipidemia, unspecified; E87.8 Other disorders of electrolyte and fluid balance, not elsewhere classified; Z87.891 Personal history of nicotine dependence; G47.00 Insomnia, unspecified; G89.29 Other chronic pain; I10 Essential (primary) hypertension; I25.10 Atherosclerotic heart disease of native coronary artery without angina pectoris; I25.2 Old myocardial infarction; Z79.1 Long term (current) use of non-steroidal anti-inflammatories (NSAID); Z79.82 Long term (current) use of aspirin; Z79.899 Other long term (current) drug therapy; D72.829 Elevated white blood cell count, unspecified; K82.9 Disease of gallbladder, unspecified; Z88.6 Allergy status to analgesic agent; Z88.5 Allergy status to narcotic agent
CPT/HCPCS: 36415; 47000; 49083; 51798; 70450; 71260; 74177; 76942; 80048; 80053; 80074; 81003; 82105; 82150; 82378; 82533; 82565; 83735; 83930; 83935; 84157; 84295; 84300; 84443; 85025; 85027; 85049; 85610; 86301; 88108; 88305; 88307; 88341; 88342; 89050; 93005; 96361; 96374; 96376; 99285